=== PATIENT | male | born 1950 | race Caucasian/White ===

== ENCOUNTER 2017-07-05 19:08 | Emergency (ER) | payer MEDICARE, BC ==
[~2017-07-05] VITALS: Ht 180.3 cm; Wt 100.0 kg
[~2017-07-05 19:08] MED LIST: ASPIRIN81 MG PO; CARVEDILOL12.5 MG PO; CORDARONE/200 MG/TAB PO; COREG25 MG PO; COUMADIN2.5 MG PO; HUMALOG 751000 UNITS SC; LISINOPRIL20 MG PO; LOVENOX SC; SIMVASTATIN40 MG PO; ZYRTEC10 MG PO
[2017-07-05] MEDS ORDERED: CLOPIDOGREL75 MG PO (20:04)
[2017-07-05] MEDS ORDERED: JANTOVEN7.5 MG PO (20:05)
[2017-07-05] MEDS ORDERED: FUROSEMIDE40 MG PO (20:05)
[2017-07-05] MEDS ORDERED: ISOSORBIDE MONO30 MG PO (20:06)
[2017-07-05] MEDS ORDERED: ATORVASTATIN CA80 MG PO (20:06)
[2017-07-05] MEDS ORDERED: VICTOZA18 MG/3 ML SC (20:07)
[2017-07-05] MEDS ORDERED: TRESIBA FL100 UNIT/M SC (20:08)
[2017-07-06 00:29] VITALS: BP 151/71
== END 2017-07-06 00:28 | disposition home or self-care (01) ==
LOC: ED 19:08
DX: S81.811A Laceration without foreign body, right lower leg, initial encounter (principal); S80.812A Abrasion, left lower leg, initial encounter; S80.811A Abrasion, right lower leg, initial encounter; M47.812 Spondylosis without myelopathy or radiculopathy, cervical region; M79.9 Soft tissue disorder, unspecified; W01.0XXA Fall on same level from slipping, tripping and stumbling without subsequent striking against object, initial encounter; Y92.89 Other specified places as the place of occurrence of the external cause

== ENCOUNTER 2017-08-26 06:27 | Day surgery (SDC) | payer MEDICARE, BC ==
[~2017-08-26] VITALS: Ht 180.3 cm; Wt 97.1 kg
[~2017-08-26 06:27] MED LIST changes: +ATORVASTATIN CA80 MG PO; +CARVEDILOL25 MG PO; +CLOPIDOGREL75 MG PO; +FUROSEMIDE40 MG PO; +ISOSORBIDE MONO30 MG PO; +JANTOVEN7.5 MG PO; +TRESIBA FL100 UNIT/M SC; +VICTOZA18 MG/3 ML SC
[2017-08-26 08:25] VITALS: BP 149/70
== END 2017-08-26 08:58 | disposition home or self-care (01) ==
LOC: ENDO 06:27
PROVIDERS: ATTEND Surgery
PROC: 0DBL8ZX Excision of Transverse Colon, Via Natural or Artificial Opening Endoscopic, Diagnostic (ICD-10-PCS; principal; 2017-08-26)
DX: Z12.11 Encounter for screening for malignant neoplasm of colon (principal); D12.3 Benign neoplasm of transverse colon; I48.91 Unspecified atrial fibrillation; I25.10 Atherosclerotic heart disease of native coronary artery without angina pectoris; E78.5 Hyperlipidemia, unspecified; E11.9 Type 2 diabetes mellitus without complications; Z95.1 Presence of aortocoronary bypass graft; Z79.01 Long term (current) use of anticoagulants

== ENCOUNTER 2018-02-02 14:44 | Observation (INO) | payer MEDICARE, BC ==
[~2018-02-02] VITALS: Ht 180.3 cm; Wt 99.5 kg
[2018-02-02 15:16] LABS: HEMATOCRIT 36.4 % (39.0-50.0); HEMOGLOBIN 12.2 g/dl (14.0-18.0); IMMATURE GRANULOCYTES 0.4 % (0.0-5.0); MEAN CELL VOLUME 88.1 fL CALC (80.0-100.0); MEAN CORPUSCULAR HGB 29.5 pG CALC (26.0-32.0); MEAN CORPUSCULAR HGB CONC 33.5 g/L CALC (32.0-36.0); NEUT# 6.48 thou/uL (1.82-7.42); RED BLOOD COUNT 4.13 mill/uL (4.70-6.10); RED CELL DISTRI WIDTH 14.5 % (11.5-15.5)
[2018-02-02 15:33] LABS: ALBUMIN 3.8 g/dL (3.2-5.0); ALKALINE PHOSPHATASE 93 u/l (38-126); ANION GAP 14 (6-22 (CALC)); BILIRUBIN, TOTAL 1.8 mg/dL (0.0-1.4); BUN 28 mg/dL (8-23); BUN/CREATININE RATIO 19 (12-20 (CALC)); CARBON DIOXIDE 23 mmol/l (22-30); CHLORIDE 110 mmol/l (95-108); CREATININE 1.5 mg/dL (0.7-1.3); GFR 47 ML/MIN (>=60 (CALC)); GFR FOR AFR.AMER. 56 ML/MIN (>=60 (CALC)); POTASSIUM 4.6 mmol/l (3.5-5.1); SGOT/AST 21 u/l (19-48); SODIUM 141 mmol/l (137-146); TOTAL PROTEIN 6.6 g/dL (6.3-8.2)
[2018-02-02 17:29] VITALS: BP 118/53
[2018-02-02 19:38] VITALS: BP 140/70
[2018-02-03 00:09] VITALS: BP 143/63
[2018-02-03 04:32] VITALS: BP 151/66
[2018-02-03 05:18] LABS: HEMATOCRIT 35.2 % (39.0-50.0); HEMOGLOBIN 11.5 g/dl (14.0-18.0); IMMATURE GRANULOCYTES 0.5 % (0.0-5.0); MEAN CELL VOLUME 89.8 fL CALC (80.0-100.0); MEAN CORPUSCULAR HGB 29.3 pG CALC (26.0-32.0); MEAN CORPUSCULAR HGB CONC 32.7 g/L CALC (32.0-36.0); NEUT# 7.09 thou/uL (1.82-7.42); RED BLOOD COUNT 3.92 mill/uL (4.70-6.10); RED CELL DISTRI WIDTH 14.6 % (11.5-15.5)
[2018-02-03 05:28] LABS: INTERNATIONAL NORMALIZED RATIO 1.5 RATIO (0.7-1.3); PROTHROMBIN TIME 15.9 SECONDS (9.0-12.5)
[2018-02-03 05:32] LABS: ALBUMIN 3.3 g/dL (3.2-5.0); ALKALINE PHOSPHATASE 86 u/l (38-126); ANION GAP 13 (6-22 (CALC)); BILIRUBIN, TOTAL 1.8 mg/dL (0.0-1.4); BUN 24 mg/dL (8-23); BUN/CREATININE RATIO 22 (12-20 (CALC)); CARBON DIOXIDE 22 mmol/l (22-30); CHLORIDE 110 mmol/l (95-108); CREATININE 1.1 mg/dL (0.7-1.3); GFR > 60 ML/MIN (>=60 (CALC)); GFR FOR AFR.AMER. > 60 ML/MIN (>=60 (CALC)); MAGNESIUM 1.9 mg/dL (1.6-2.3); POTASSIUM 3.7 mmol/l (3.5-5.1); SGOT/AST 18 u/l (19-48); SODIUM 142 mmol/l (137-146); TOTAL PROTEIN 5.9 g/dL (6.3-8.2)
[2018-02-03 05:57] LABS: URINE BILIRUBIN - DIPSTICK NEGATIVE (NEGATIVE); URINE BLOOD DIPSTICK NEGATIVE (NEGATIVE); URINE COLOR YELLOW; URINE GLUCOSE - DIPSTICK NEGATIVE (NEGATIVE); URINE KETONE NEGATIVE (NEGATIVE); URINE LEUK ESTERASE NEGATIVE (Negative); URINE NITRITE - DIPSTICK NEGATIVE (Negative); URINE PH 5.5 (4.5-8.0); URINE PROTEIN - DIPSTICK NEGATIVE (NEG-TRACE); URINE SPECIFIC GRAVITY 1.025; URINE UROBILINOGEN - DIPSTICK 0.2 E.U./dL (0.2)
[2018-02-03 06:00] LABS: URINE CLARITY CLEAR
[2018-02-03 11:57] VITALS: BP 128/66
== END 2018-02-03 13:38 | disposition home or self-care (01) ==
LOC: ED 14:44 → ED-I 15:50 → ED 16:14 → MS2 16:15
PROVIDERS: Emergency Medicine; ADMIT Internal Medicine Nephrology; ATTEND Internal Medicine Nephrology
DX: R07.89 Other chest pain (principal); I11.0 Hypertensive heart disease with heart failure; I25.119 Atherosclerotic heart disease of native coronary artery with unspecified angina pectoris; I50.22 Chronic systolic (congestive) heart failure; E78.5 Hyperlipidemia, unspecified; E66.9 Obesity, unspecified; E11.51 Type 2 diabetes mellitus with diabetic peripheral angiopathy without gangrene; I25.2 Old myocardial infarction; Z68.30 Body mass index [BMI] 30.0-30.9, adult; Z95.1 Presence of aortocoronary bypass graft; Z95.5 Presence of coronary angioplasty implant and graft; Z87.891 Personal history of nicotine dependence; Z79.4 Long term (current) use of insulin

== ENCOUNTER 2018-05-27 16:20 | Emergency (ER) | payer MEDICARE, BC ==
[~2018-05-27] VITALS: Ht 180.3 cm; Wt 105.0 kg
[2018-05-27 16:41] LABS: GFR 51 ML/MIN (>=60 (CALC)); GFR FOR AFR.AMER. > 60 ML/MIN (>=60 (CALC))
[2018-05-27 16:43] LABS: HEMOGLOBIN 12.4 g/dl (14.0-18.0); IMMATURE GRANULOCYTES 0.5 % (0.0-5.0); MEAN CELL VOLUME 91.1 fL CALC (80.0-100.0); MEAN CORPUSCULAR HGB 29.7 pG CALC (26.0-32.0); MEAN CORPUSCULAR HGB CONC 32.6 g/L CALC (32.0-36.0); NEUT# 6.36 thou/uL (1.82-7.42); RED BLOOD COUNT 4.17 mill/uL (4.70-6.10); RED CELL DISTRI WIDTH 13.7 % (11.5-15.5)
[2018-05-27 17:02] LABS: ALBUMIN 4.3 g/dL (3.2-5.0); ALKALINE PHOSPHATASE 110 u/l (38-126); ANION GAP 16 (6-22 (CALC)); BUN 18 mg/dL (8-23); BUN/CREATININE RATIO 14 (12-20 (CALC)); CARBON DIOXIDE 25 mmol/l (22-30); CHLORIDE 104 mmol/l (95-108); CREATININE 1.3 mg/dL (0.7-1.3); GFR 55 ML/MIN (>=60 (CALC)); GFR FOR AFR.AMER. > 60 ML/MIN (>=60 (CALC)); POTASSIUM 3.9 mmol/l (3.5-5.1); SGOT/AST 18 u/l (19-48); SODIUM 140 mmol/l (137-146); TOTAL PROTEIN 7.1 g/dL (6.3-8.2)
[2018-05-27 17:03] LABS: INTERNATIONAL NORMALIZED RATIO 1.2 RATIO (0.7-1.3)
[2018-05-27] MEDS ORDERED: METFORMIN500 MG PO (17:56)
[2018-05-27 20:18] LABS: BARBITURATES NEGATIVE (NEGATIVE); COCAINE NEGATIVE (NEGATIVE); METHADONE NEGATIVE (NEGATIVE); OXCYCODONE NEGATIVE (NEGATIVE); TETRAHYDROCANNABIONOL NEGATIVE (NEGATIVE); TRICYLIC ANTIDEPRESSANTS NEGATIVE (NEGATIVE)
[2018-05-27 21:40] VITALS: BP 149/72
== END 2018-05-27 21:40 ==
LOC: ED 16:20
PROVIDERS: Emergency Medicine
DX: I63.9 Cerebral infarction, unspecified (principal); R47.01 Aphasia; R29.810 Facial weakness; H53.451 Other localized visual field defect, right eye; R29.703 NIHSS score 3; R10.9 Unspecified abdominal pain; I10 Essential (primary) hypertension; I25.2 Old myocardial infarction; E11.51 Type 2 diabetes mellitus with diabetic peripheral angiopathy without gangrene; Z95.1 Presence of aortocoronary bypass graft; Z95.5 Presence of coronary angioplasty implant and graft; Z95.0 Presence of cardiac pacemaker
CPT/HCPCS: J1650

== ENCOUNTER 2018-08-28 13:36 | Emergency (ER) | payer MEDICARE, BC ==
[~2018-08-28] VITALS: Ht 180.3 cm; Wt 102.0 kg
[~2018-08-28 13:36] MED LIST changes: +METFORMIN500 MG PO
[2018-08-28 14:45] LABS: HEMATOCRIT 36.4 % (39.0-50.0); HEMOGLOBIN 11.6 g/dl (14.0-18.0); IMMATURE GRANULOCYTES 0.5 % (0.0-5.0); MEAN CELL VOLUME 91.7 fL CALC (80.0-100.0); MEAN CORPUSCULAR HGB 29.2 pG CALC (26.0-32.0); MEAN CORPUSCULAR HGB CONC 31.9 g/L CALC (32.0-36.0); NEUT# 5.13 thou/uL (1.82-7.42); RED BLOOD COUNT 3.97 mill/uL (4.70-6.10); RED CELL DISTRI WIDTH 13.8 % (11.5-15.5)
[2018-08-28 14:51] LABS: GFR > 60 ML/MIN (>=60 (CALC)); GFR FOR AFR.AMER. > 60 ML/MIN (>=60 (CALC))
[2018-08-28 15:20] LABS: INTERNATIONAL NORMALIZED RATIO 1.2 RATIO (0.7-1.3); PROTHROMBIN TIME 12.1 SECONDS (9.0-12.5)
[2018-08-28 15:24] LABS: ALBUMIN 4.1 g/dL (3.2-5.0); ALKALINE PHOSPHATASE 85 u/l (38-126); ANION GAP 15 (6-22 (CALC)); BILIRUBIN, TOTAL 1.9 mg/dL (0.0-1.4); BUN 24 mg/dL (8-23); BUN/CREATININE RATIO 23 (12-20 (CALC)); CARBON DIOXIDE 21 mmol/l (22-30); CHLORIDE 111 mmol/l (95-108); GFR > 60 ML/MIN (>=60 (CALC)); GFR FOR AFR.AMER. > 60 ML/MIN (>=60 (CALC)); LIPASE 37 u/l (23-300); POTASSIUM 4.3 mmol/l (3.5-5.1); SGOT/AST 20 u/l (19-48); SODIUM 143 mmol/l (137-146)
[2018-08-28] MEDS ORDERED: CEPHALEXIN500 M1 PO (16:33)
[2018-08-28] MEDS ORDERED: TRAMADOL HYDROC50 MG PO (16:33)
[2018-08-28] MEDS ORDERED: MUPIROCIN2 % EX (16:33)
[2018-08-28 16:40] VITALS: BP 147/73
== END 2018-08-28 16:40 | disposition home or self-care (01) ==
LOC: ED 13:36
PROVIDERS: Family Medicine
DX: S80.211A Abrasion, right knee, initial encounter (principal); S50.311A Abrasion of right elbow, initial encounter; S20.211A Contusion of right front wall of thorax, initial encounter; I10 Essential (primary) hypertension; E11.51 Type 2 diabetes mellitus with diabetic peripheral angiopathy without gangrene; I25.2 Old myocardial infarction; W10.9XXA Fall (on) (from) unspecified stairs and steps, initial encounter
CPT/HCPCS: Q9967

== ENCOUNTER 2019-09-27 01:21 | Observation (INO) | payer MEDICARE, BC ==
[~2019-09-27] VITALS: Ht 180.3 cm; Wt 104.5 kg
[~2019-09-27 01:21] MED LIST changes: +CEPHALEXIN500 M1 PO; +FUROSEMIDE20 MG PO; -FUROSEMIDE40 MG PO; +MUPIROCIN2 % EX; +TRAMADOL HYDROC50 MG PO
--- NOTE | 2019-09-27 01:28 | NUR ---
PATIENT INSISTED ON WALKING TO ROOM 12. UNDRESSED INTO A GOWN, PLACED ON MONITOR. TRIAGE COMPLETED AT BEDSIDE.
--- NOTE | 2019-09-27 02:11 | NUR ---
PT STATES HIS CHEST PAIN STARTED YESTERDAY AROUND NOON (HE ALSO STATES HE HAD BEEN WORKING OUT IN THE YARD AND WORKING WITH HIS DOG WELL) BUT THE PAIN JAMES CAME AND WENT, SO LATER LAST NIGHT HE TOOK NTG X2 QWITH MILD RELIEF BUT THEN IT CAME BACK SO HE DECIEDED TO COME IN. PT HAS CARDIAC HX OF CABG, PACER, DM MRSA AND MISSING MULTIPLE TOES ON BILATERAL FEET RELATED TO CORRECTIVE FOOT SURGERY GONE BAD PER PT AND SPOUSE, PT ALSO HAS EDEMA TO BLE WITH SOME OPEN AREAS AND WEEPING SEROUS FLUID MODERATE AMOUNTS, PT STAETS THAT IS NOT NEW.
[2019-09-27 02:12] LABS: HEMATOCRIT 35.9 % (39.0-50.0); HEMOGLOBIN 11.9 g/dl (14.0-18.0); IMMATURE GRANULOCYTES 0.6 % (0.0-5.0); MEAN CELL VOLUME 88.9 fL CALC (80.0-100.0); MEAN CORPUSCULAR HGB 29.5 pG CALC (26.0-32.0); MEAN CORPUSCULAR HGB CONC 33.1 g/dL CAL (32.0-36.0); NEUT# 5.74 thou/uL (1.82-7.42); RED BLOOD COUNT 4.04 mill/uL (4.70-6.10); RED CELL DISTRI WIDTH 14.6 % (11.5-15.5)
[2019-09-27 02:33] LABS: ALBUMIN 3.5 g/dL (3.2-5.0); ALKALINE PHOSPHATASE 81 u/l (38-126); ANION GAP 11 (6-22 (CALC)); BILIRUBIN, TOTAL 1.2 mg/dL (0.0-1.4); BUN 22 mg/dL (8-23); BUN/CREATININE RATIO 21 (12-20 (CALC)); CARBON DIOXIDE 25 mmol/l (22-30); CHLORIDE 105 mmol/l (95-108); CREATININE 1.1 mg/dL (0.7-1.3); GFR > 60 ML/MIN (>=60 (CALC)); GFR FOR AFR.AMER. > 60 ML/MIN (>=60 (CALC)); POTASSIUM 3.5 mmol/l (3.5-5.1); SGOT/AST 21 u/l (19-48); SODIUM 137 mmol/l (137-146); TOTAL PROTEIN 6.2 g/dL (6.3-8.2)
[2019-09-27 02:45] LABS: MYOGLOBIN 57 ng/mL (0 - 121)
--- NOTE | 2019-09-27 03:20 | NUR ---
AWARE OF PLANNED ADMISSION AND PROLONGED STAY IN ER UNTIL BED AVAILABLE, AT BEDSIDE BOTH VERBALIZE UNDERSTANDING.
--- NOTE | 2019-09-27 03:53 | NUR ---
ADMISSION ASSESMENT COMPLETED, SEE INTERVENTIONS PT STATES HIS CP STARTED YESTERDAY AFTER WORKING IN THE YARD AND WITH THE DOG, SUBSUDED THEN RETURNED AND BECAUSE OF HIS CARDIAC HISTORY HE DECIDED TO COME IN FOR EVAL. LUNGS CLEAR WITH NO SOB, PT HAS BLE WITH OPEN AREAS AND WEEPING SEROUS DRNG, PT HAS HISTORY OF PVD AND STATES THIS IS NOT NEW. AWARE OF PROLONGED STAY IN ER UNTIL BED AVAIALABLE, VERBALIZES UNDERSTANDING, AT BEDSIDE, COMFORT MEASURES PROVIDED, SNACK PROVIDED, CALL QUIROGA WITHIN REACH
[2019-09-27 06:45] VITALS: BP 164/79
[2019-09-27 07:17] VITALS: BP 173/83
[2019-09-27 07:37] LABS: CHOLESTEROL HDL RATIO 3.9 (<4.4 (CALC))
[2019-09-27 09:26] VITALS: BP 182/76
--- NOTE | 2019-09-27 09:30 | NUR ---
WILL HOLD CARVEDILOL DUE TO HEART RATE AT 60. R ERINA NOTIFIED.
--- NOTE | 2019-09-27 10:53 | NUR ---
RECEIVED REPORT FROM ALEC ANDREWS WILL BRING UP PT SOON.
--- NOTE | 2019-09-27 11:30 | NUR ---
Admission Note Report Given to: BREANNE RODRIGUEZ Transported by: X Wheelchair Stretcher Transported with: X Nurse Transporter X Patent IV O2 X Filer Finish Location: ICU X MS2 PATIENT TO ROOM 278 WITH TELE BOX IN [address]ACE.
--- NOTE | 2019-09-27 11:41 | NUR ---
PT ARRIVED VIA WC WITH STAFF. IV SITE IS FREE FROM REDNESS OR EDEMA. AMBULATED TO THE BED WITH NO DISTRESS NOTED. CONTINUE TO OSBERVE AND MONITOR.
[2019-09-27 11:43] LABS: URINE BILIRUBIN - DIPSTICK NEGATIVE (NEGATIVE); URINE BLOOD DIPSTICK NEGATIVE (NEGATIVE); URINE COLOR YELLOW; URINE GLUCOSE - DIPSTICK NEGATIVE (NEGATIVE); URINE KETONE NEGATIVE (NEGATIVE); URINE LEUK ESTERASE NEGATIVE (NEGATIVE); URINE NITRITE - DIPSTICK NEGATIVE (Negative); URINE PROTEIN - DIPSTICK 100 mg/dL (NEG-TRACE); URINE SPECIFIC GRAVITY 1.015
[2019-09-27 11:58] LABS: URINE RBC 0-2 RBC/hpf (0-5); URINE SQUAMOUS EPITHELIAL CELL FEW EPI/hpf (0-FEW)
[2019-09-27 12:09] LABS: INTERNATIONAL NORMALIZED RATIO 1.2 RATIO (0.7-1.3)
--- NOTE | 2019-09-27 12:15 | NUR ---
PT IS RELAXING IN BED WITH NO DISTRESS NOTED.
[2019-09-27 15:00] VITALS: BP 166/75
--- NOTE | 2019-09-27 16:30 | NUR ---
PT IS IN BED CALLING HIS RE: DISCHARGE
--- NOTE | 2019-09-27 16:32 | NUR ---
DISCHARGE INSTRUCTIONS GIVEN AND VERBALIZED UNDERSTANDING. IV SITE DISCONTINUED CATHETER INTACT. NO REDNESS OR EDEMA./ TELE MONITOR TAKEN OFF. CONTINUE TO OSBERVE AND MONITOR.
--- NOTE | 2019-09-27 17:29 | NUR ---
PT AMBUALTED OFF THE UNIT. IV SITE DISCONTINUED. CATHETER INTACT. DISCHARGE INSTRUCTIONS FAMILY BROUGHT CLOTHES FOR PT TO CHANGE INTO. WANTS TO WALK TIRED OF LAYING. Discharge instructions given. Patient verbalizes understanding of same. Discharged in stable condition via Ambulatory to Home with family. All belongings sent with pt.
== END 2019-09-27 17:20 | disposition home or self-care (01) ==
LOC: ED 01:21 → ED-I 02:07 → ED 02:54 → ED-I 02:55 → MS2 09:00
PROVIDERS: Emergency Medicine; ADMIT Internal Medicine; ATTEND Internal Medicine
DX: I25.118 Atherosclerotic heart disease of native coronary artery with other forms of angina pectoris (principal); I11.0 Hypertensive heart disease with heart failure; I50.9 Heart failure, unspecified; E11.51 Type 2 diabetes mellitus with diabetic peripheral angiopathy without gangrene; I48.91 Unspecified atrial fibrillation; E78.5 Hyperlipidemia, unspecified; Z95.1 Presence of aortocoronary bypass graft; Z95.5 Presence of coronary angioplasty implant and graft; Z95.810 Presence of automatic (implantable) cardiac defibrillator; Z87.891 Personal history of nicotine dependence; Z79.01 Long term (current) use of anticoagulants; Z79.4 Long term (current) use of insulin; Z79.82 Long term (current) use of aspirin; Z79.02 Long term (current) use of antithrombotics/antiplatelets; Z20.828 Contact with and (suspected) exposure to other viral communicable diseases
CPT/HCPCS: G0378

== ENCOUNTER 2020-07-11 18:23 | Observation (INO) | payer MEDICARE, BC ==
[~2020-07-11] VITALS: Ht 180.3 cm; Wt 114.0 kg
[~2020-07-11 18:23] MED LIST changes: +XARELTO10 MG PO
[2020-07-11] MEDS ORDERED: NITROSTAT0.3 MG SL (18:53)
[2020-07-11 19:24] LABS: HEMATOCRIT 35.5 % (39.0-50.0); HEMOGLOBIN 11.2 g/dl (14.0-18.0); IMMATURE GRANULOCYTES 0.4 % (0.0-5.0); MEAN CELL VOLUME 92.4 fL CALC (80.0-100.0); MEAN CORPUSCULAR HGB 29.2 pG CALC (26.0-32.0); MEAN CORPUSCULAR HGB CONC 31.5 g/dL CAL (32.0-36.0); NEUT# 5.66 thou/uL (1.82-7.42); RED BLOOD COUNT 3.84 mill/uL (4.70-6.10); RED CELL DISTRI WIDTH 14.5 % (11.5-15.5)
[2020-07-11 19:43] LABS: ALKALINE PHOSPHATASE 82 u/l (38-126); ANION GAP 11 (6-22 (CALC)); BILIRUBIN, TOTAL 1.1 mg/dL (0.0-1.4); BUN 15 mg/dL (8-23); BUN/CREATININE RATIO 13 (12-20 (CALC)); CARBON DIOXIDE 27 mmol/l (22-30); CHLORIDE 105 mmol/l (95-108); CREATININE 1.2 mg/dL (0.7-1.3); GFR 60 ML/MIN (>=60 (CALC)); GFR FOR AFR.AMER. > 60 ML/MIN (>=60 (CALC)); LIPASE 22 u/l (23-300); POTASSIUM 3.8 mmol/l (3.5-5.1); SGOT/AST 25 u/l (19-48); SODIUM 139 mmol/l (137-146)
[2020-07-11 19:44] LABS: ACT PARTIAL THROMBO TIME 25.2 SECONDS (20.0-32.5); ALBUMIN 4.1 g/dL (3.2-5.0); PROTHROMBIN TIME 11.2 SECONDS (9.0-12.5); TOTAL PROTEIN 7.2 g/dL (6.3-8.2)
[2020-07-11 19:45] LABS: INTERNATIONAL NORMALIZED RATIO 1.1 RATIO (0.7-1.3)
[2020-07-11 19:54] LABS: MYOGLOBIN 53 ng/mL (0 - 121)
[2020-07-11 21:55] VITALS: BP 159/89
[2020-07-12 04:00] VITALS: BP 148/60
[2020-07-12 05:44] LABS: HEMATOCRIT 34.2 % (39.0-50.0); HEMOGLOBIN 10.5 g/dl (14.0-18.0); IMMATURE GRANULOCYTES 0.5 % (0.0-5.0); MEAN CELL VOLUME 92.9 fL CALC (80.0-100.0); MEAN CORPUSCULAR HGB 28.5 pG CALC (26.0-32.0); MEAN CORPUSCULAR HGB CONC 30.7 g/dL CAL (32.0-36.0); NEUT# 5.83 thou/uL (1.82-7.42); RED BLOOD COUNT 3.68 mill/uL (4.70-6.10); RED CELL DISTRI WIDTH 14.3 % (11.5-15.5)
[2020-07-12 06:02] LABS: ALBUMIN 3.4 g/dL (3.2-5.0); ALKALINE PHOSPHATASE 78 u/l (38-126); ANION GAP 11 (6-22 (CALC)); BUN 15 mg/dL (8-23); BUN/CREATININE RATIO 17 (12-20 (CALC)); CARBON DIOXIDE 25 mmol/l (22-30); CHLORIDE 107 mmol/l (95-108); CREATININE 0.9 mg/dL (0.7-1.3); GFR > 60 ML/MIN (>=60 (CALC)); GFR FOR AFR.AMER. > 60 ML/MIN (>=60 (CALC)); POTASSIUM 3.6 mmol/l (3.5-5.1); SGOT/AST 23 u/l (19-48); SODIUM 138 mmol/l (137-146); TOTAL PROTEIN 6.2 g/dL (6.3-8.2)
[2020-07-12 07:54] VITALS: BP 154/67
[2020-07-12] MEDS ORDERED: VIAGRA50 MG PO (08:31)
[2020-07-12] MEDS ORDERED: HYDROCO/APAP1 TA9 PO (08:32)
[2020-07-12 09:15] LABS: CHOLESTEROL HDL RATIO 4.9 (<4.4 (CALC))
[2020-07-12 10:47] VITALS: BP 163/75
[2020-07-12 11:18] LABS: URINE BILIRUBIN - DIPSTICK NEGATIVE (NEGATIVE); URINE BLOOD DIPSTICK NEGATIVE (NEGATIVE); URINE COLOR YELLOW; URINE GLUCOSE - DIPSTICK NEGATIVE (NEGATIVE); URINE KETONE NEGATIVE (NEGATIVE); URINE LEUK ESTERASE NEGATIVE (NEGATIVE); URINE NITRITE - DIPSTICK NEGATIVE (Negative); URINE PROTEIN - DIPSTICK 100 mg/dL (NEG-TRACE); URINE SPECIFIC GRAVITY 1.025
[2020-07-12 11:36] LABS: URINE SQUAMOUS EPITHELIAL CELL RARE EPI/hpf (0-FEW)
[2020-09-26] MEDS ORDERED: MEDDOSEPAK PO (11:54)
[2020-09-26] MEDS ORDERED: PROVENTIL HFA IN (11:54)
[2020-12-04] MEDS ORDERED: ISOSORB MONO30 MG PO (11:39)
[2020-12-04] MEDS ORDERED: ADLT ASA LOW81 MG PO (11:39)
== END 2020-07-12 14:30 | disposition home or self-care (01) ==
LOC: ED 18:23 → ED-I 19:13 → ED 20:34 → MS2 20:35
PROVIDERS: Emergency Medicine; Nurse Practitioner; ADMIT Internal Medicine; ATTEND Internal Medicine
DX: R07.9 Chest pain, unspecified (principal); J18.9 Pneumonia, unspecified organism; I11.0 Hypertensive heart disease with heart failure; I50.9 Heart failure, unspecified; E11.9 Type 2 diabetes mellitus without complications; I25.119 Atherosclerotic heart disease of native coronary artery with unspecified angina pectoris; I48.20 Chronic atrial fibrillation, unspecified; E78.5 Hyperlipidemia, unspecified; R59.0 Localized enlarged lymph nodes; I73.9 Peripheral vascular disease, unspecified; I25.2 Old myocardial infarction; Z86.14 Personal history of Methicillin resistant Staphylococcus aureus infection; Z79.4 Long term (current) use of insulin; Z95.1 Presence of aortocoronary bypass graft; Z95.5 Presence of coronary angioplasty implant and graft; Z95.810 Presence of automatic (implantable) cardiac defibrillator; Z87.891 Personal history of nicotine dependence; Z20.822 Contact with and (suspected) exposure to COVID-19
CPT/HCPCS: G0378

== ENCOUNTER 2020-09-21 18:18 | Inpatient (IN) | payer MEDICARE, BC ==
[~2020-09-21] VITALS: Ht 180.3 cm; Wt 100.0 kg
[~2020-09-21 18:18] MED LIST changes: +HYDROCO/APAP1 TA9 PO; +NITROSTAT0.3 MG SL; +VIAGRA50 MG PO
--- NOTE | 2020-09-21 18:25 | NUR ---
PATEINT TO ROOM VIA WHELCHAIR AND PHYSICIAN NOTIFIED OF PATIENT STATUS
--- NOTE | 2020-09-21 19:07 | NUR ---
REPORT TO KEMI ANDREWS
[2020-09-21 19:11] LABS: HEMATOCRIT 37.6 % (39.0-50.0); HEMOGLOBIN 12.1 g/dl (14.0-18.0); IMMATURE GRANULOCYTES 0.5 % (0.0-5.0); MEAN CELL VOLUME 89.3 fL CALC (80.0-100.0); MEAN CORPUSCULAR HGB 28.7 pG CALC (26.0-32.0); MEAN CORPUSCULAR HGB CONC 32.2 g/dL CAL (32.0-36.0); NEUT# 27.78 thou/uL (1.82-7.42); RED BLOOD COUNT 4.21 mill/uL (4.70-6.10)
[2020-09-21 19:18] LABS: ALBUMIN 3.7 g/dL (3.2-5.0); ALKALINE PHOSPHATASE 92 u/l (38-126); ANION GAP 14 (6-22 (CALC)); BUN 14 mg/dL (8-23); BUN/CREATININE RATIO 14 (12-20 (CALC)); CARBON DIOXIDE 26 mmol/l (22-30); CHLORIDE 99 mmol/l (95-108); GFR > 60 ML/MIN (>=60 (CALC)); GFR FOR AFR.AMER. > 60 ML/MIN (>=60 (CALC)); POTASSIUM 3.9 mmol/l (3.5-5.1); SGOT/AST 28 u/l (19-48); SODIUM 136 mmol/l (137-146); TOTAL PROTEIN 6.9 g/dL (6.3-8.2)
[2020-09-21 19:26] LABS: BILIRUBIN, TOTAL 3.4 mg/dL (0.0-1.4)
[2020-09-21 19:30] LABS: MYOGLOBIN 114 ng/mL (0 - 121)
--- NOTE | 2020-09-21 20:08 | NUR ---
PT UNABLE TO VERIFY MEDICATIONS NOT CHANGED R/T MD ALREADY ORDERED MEDS, CONSULT PLACED FOR PHARMACY TO EVAL.
--- NOTE | 2020-09-21 20:19 | NUR ---
REPORT CALLED TO [facility].
--- NOTE | 2020-09-21 20:43 | NUR ---
PT REFUSED MONGE INSERTION, PT WILL ATTEMPT TO PROVIDE URINE SPECIMEN, CALL QUIROGA WITHIN REACH
--- NOTE | 2020-09-21 21:42 | NUR ---
PT TRANSPORTED TO ICU VIA STRETCHER, ALL BELONGINGS SENT WITH PATIENT.
[2020-09-21 21:45] VITALS: BP 138/65
--- NOTE | 2020-09-21 21:45 | NUR ---
PT ARRIVED TO FLOOR VIA STRETCHER ACCOMPAINED BY ER STAFF. ADMITTED TO ICU BED 6 FOR CHF, HYPOXIA, PNEUMONIA, AND LEUKOCYTOSIS. PT A&OX4. NO APPARENT RESPIRATORY DISTRESS NOTED. PT ON 2L/M VIA NC SAT 98%, NOT HOME DEPENDENT. PT AMBULATORY WITH CANE AND X1 ASSIST FROM STRETCHER TO BED. PT PLACED ON MONITORS AT THIS TIME. ACCUCHECK OBTAINED, 206. PT IN GOWN AND SHORTS FROM HOME, SHORTS SMELL STRONGLY OF URINE. PT REFUSED TO REMOVE SHORTS. PT DENIES ANY INCONTINENCE OF BOWEL OR BLADDER. NO URINE SAMPLE OBTAINED IN ED, PT HAS NOT VOIDED YET. REFUSED MONGE CATHETER FOR STRICT I'S&O'S. IV SITE APPEARS HEALTHY, FLUSHED WITHOUT DIFFICULTY. PT ORIENTED TO ROOM AND CALL LIGHT SYSTEM. SAFETY PRECAUTIONS REINFORCED. ICE WATER PROVIDED. NO CURRENT WANTS OR NEEDS VOICED. CALL LIGHT WITHIN REACH. WILL CONTINUE TO MONITOR.
[2020-09-21 22:00] VITALS: BP 133/62
--- NOTE | 2020-09-21 22:13 | NUR ---
PT MEDICATED ORDERED. PT REFUSED METFORMIN, STATES NO LONGER TAKES AT HOME. DIABETIC SNACK OFFERED PT ALSO REFUSED. NO APPARENT RESPIRATORY DISTRESS NOTED. NO CURRENT WANTS OR NEEDS VOICED. CALL LIGHT WITHIN REACH. WILL CONTINUE TO MONITOR.
[2020-09-21 22:15] VITALS: BP 111/53
--- NOTE | 2020-09-21 22:20 | NUR ---
WOUND CULTURE OBTAINED FROM LLE WOUND, BLOOD DRAINAGE NOTED. CLEANSED WITH NS, COVERED WITH DRY DRESSING. PT STATES STARTED BLISTER ABOUT TWO WEEKS AGO, HE [facility] TO HAVE IT LOOKED AT.
[2020-09-21 22:30] VITALS: BP 137/66
[2020-09-21 22:45] VITALS: BP 129/60
[2020-09-22] VITALS (11 sets, daily range): BP systolic 101–124; BP diastolic 54–67
--- NOTE | 2020-09-22 00:07 | NUR ---
PT RESTING IN BED WITH EYES CLOSED. NO APPARENT DISTRESS NOTED. RESPIRATIONS EVEN AND UNLABORED. MONITORS IN PLACE. O2 @ 2L/M VIA NC. VSS. CALL LIGHT WITHIN REACH. WILL CONTINUE TO MONITOR.
--- NOTE | 2020-09-22 01:19 | NUR ---
WARM BLANKET PROVIDED UPON REQUEST. AFEBRILE AT THIS TIME. PT HAS NOT VOIDED YET. PT STATES " I DON'T HAVE TO GO" ENCOURAGED PT TO TRY. DISCUSSED MONGE CATHETER AND BLADDER SCANNING. PT VERBALIZED UNDERSTANDING BUT CONTINUE TO REFUSE AT THIS TIME. WILL CONTINUE TO MONITOR.
--- NOTE | 2020-09-22 03:14 | NUR ---
BLADDER SCANNED AT THIS TIME. 158ML NOTED AT THIS TIME. NO BLADDER DISTENTION NOTED. WATER PROVIDED UPON REQUEST. VSS. CALL LIGHT WITHIN REACH. WILL CONTINUE TO MONITOR.
--- NOTE | 2020-09-22 04:55 | NUR ---
PT C/O PELVIS DISCOMFORT AND FEELING THE URGE TO URINATE BUT NOT ABLE TO. BLADDER SCANNED AT THIS TIME, GREATER THAN 300ML NOTED. DISCUSSED FINDINGS WITH PT AND NEED FOR MONGE PLACEMENT. PT VERBALIZED UNDERSTANDING AND AGREED TO MONGE PLACEMENT AT THIS TIME. 16F INSERTED USING STERILE TECHNIQUE, SECURED TO RIGHT THIGH, COLLECTION BAG ATTACHED TO BED. 350ML MICHAEL COLORED URINE NOTED DRAINING TO GRAVITY. URINE SAMPLE SENT TO LAB AT THIS TIME. PT TOLERATED WELL. PT REPOSITIONED IN BED. NO APPARENT DISTRESS NOTED. RESPIRATIONS EVEN AND UNLABORED. VSS. 02 SAT 98% ON 2L/M VIA NC. NO CURRENT WANTS OR NEEDS NOTED. CALL LIGHT WITHIN REACH. WILL CONTINUE TO MONITOR.
[2020-09-22 05:05] LABS: HEMOGLOBIN 10.8 g/dl (14.0-18.0); IMMATURE GRANULOCYTES 0.3 % (0.0-5.0); MEAN CELL VOLUME 91.1 fL CALC (80.0-100.0); MEAN CORPUSCULAR HGB 28.1 pG CALC (26.0-32.0); MEAN CORPUSCULAR HGB CONC 30.9 g/dL CAL (32.0-36.0); NEUT# 17.34 thou/uL (1.82-7.42); RED BLOOD COUNT 3.84 mill/uL (4.70-6.10); RED CELL DISTRI WIDTH 14.3 % (11.5-15.5)
[2020-09-22 05:25] LABS: ALKALINE PHOSPHATASE 69 u/l (38-126); ANION GAP 11 (6-22 (CALC)); BILIRUBIN, TOTAL 2.6 mg/dL (0.0-1.4); BUN 18 mg/dL (8-23); BUN/CREATININE RATIO 19 (12-20 (CALC)); CARBON DIOXIDE 26 mmol/l (22-30); CHLORIDE 102 mmol/l (95-108); CREATININE 0.9 mg/dL (0.7-1.3); GFR > 60 ML/MIN (>=60 (CALC)); GFR FOR AFR.AMER. > 60 ML/MIN (>=60 (CALC)); POTASSIUM 3.6 mmol/l (3.5-5.1); SGOT/AST 21 u/l (19-48); SODIUM 135 mmol/l (137-146); TOTAL PROTEIN 5.7 g/dL (6.3-8.2)
[2020-09-22 05:31] LABS: URINE BLOOD DIPSTICK MODERATE (NEGATIVE); URINE COLOR YELLOW; URINE GLUCOSE - DIPSTICK 100 mg/dL (NEGATIVE); URINE KETONE NEGATIVE (NEGATIVE); URINE PROTEIN - DIPSTICK >=300 mg/dL (NEG-TRACE); URINE SPECIFIC GRAVITY >=1.030; URINE UROBILINOGEN - DIPSTICK 0.2 E.U./dL (0.2)
[2020-09-22 05:34] LABS: URINE BILIRUBIN - DIPSTICK SMALL (NEGATIVE); URINE NITRITE - DIPSTICK NEGATIVE (Negative)
[2020-09-22 05:35] LABS: URINE LEUK ESTERASE NEGATIVE (NEGATIVE)
[2020-09-22 05:40] LABS: URINE BACTERIA MODERATE hpf; URINE EPITHELIAL CELLS FEW EPI/hpf (0-FEW)
[2020-09-22 05:55] LABS: ALBUMIN 2.8 g/dL (3.2-5.0)
--- NOTE | 2020-09-22 06:35 | NUR ---
PT RESTING IN BED WITH EYES CLOSED. NO APPARENT DISTRESS NOTED. RESPIRATIONS EVEN AND UNLABORED. MONITORS IN PLACE. O2 @ 2L/M VIA NC. CloudTranDread. MONGE PATENT DRAINING TO GRAVITY. CALL LIGHT WITHIN REACH. WILL CONTINUE TO MONITOR.
--- NOTE | 2020-09-22 06:45 | NUR ---
pt on 2lpm nc, resting comfortable c nad. vss. pt spo2 97. clerk telegraph service to monitor.
--- NOTE | 2020-09-22 07:10 | NUR ---
RECIEVED REPORT FROM NIGHT NURSE.
--- NOTE | 2020-09-22 07:30 | NUR ---
PATIENT ASSESSED. A/O X3. TURNED DOWN O2 NC TO 1L. O2 SATS 97%. PERRAL. NO PAIN REPORTED. NO SOB OR CHEST PAIN. DIM/CLEAR LUNG SOUNDS. HEART SOUNDS NORMAL WITH PACER. HYPOACTIVE BOWEL SOUNDS. NO EDEMA NOTED. MARICEL STOCKINGS ON. SMALL WOUND ON LEFT LOWER LEG. BANDADE WAS PLACED BY PREVIOUS NURSE. WEAK PEDAL PULSES. MISSING TOES ON BILAT FEET. ACCUCHECK 80, GAVE HIM ORANGE JUICE, STATED HE WILL THROW UP IF HE EATS ANY FOOD. GAVE HIM JELLO-O, APPLE SAUCE, AND PUDDING ON BEDSIDE TABLE IN CAUSE HE'D LIKE TO EAT SOMETHING SOFTER. FRESH ICE WATER IS AT BEDSIDE WELL. REFUSED BREAKFAST, EVEN THE OATMEAL. BEDSIDE COMMODE PLACED IN ROOM. SAFETY MEASURES IN PLACED. CALL LIGHT IN REACH. WILL CONTINUE TO MONITOR. VITAL SIGNS ARE STABLE.
--- NOTE | 2020-09-22 07:50 | NUR ---
RECIEVED REPORT FROM NIGHT NURSE.
--- NOTE | 2020-09-22 10:00 | NUR ---
PATIENT IS RESTING IN BED, STATED THAT AFTER HE SPOKE TO THE DOCTOR HE IS MUCH HAPPIER. HE IS OK WITH TRANSFERRING TO [facility] LATER TODAY. HE ALSO SMILED FOR THE FIRST TIME SINCE I GOT ON SHIFT. SAFETY MEASURES IN PLACE. CALL LIGHT IN REACH. WILL CONTINUE TO MONITOR.
--- NOTE | 2020-09-22 12:00 | NUR ---
PATIENT IS SITTING IN BED EATING LUNCH
--- NOTE | 2020-09-22 12:45 | NUR ---
PATIENT'S BLOOD SUGAR WAS 51 DROPPED DOWN TO 48 AFTER EATING ENTIRE LUNCH. CALLED DR. HEARN, STATED TO MONITOR IT AND INFORM HIM ON THE AFTERNOON BLOOD SUGAR. HE HASN'T BEEN EATING FOR PAST COUPLE DAYS AND HE REFUSED BREAKFAST THIS MORNING. WAS GIVEN 80UNITS OF LEVEMIR LAST NIGHT AROUND 2200.
--- NOTE | 2020-09-22 14:28 | NUR ---
PATIENT IS SITTING ON BSC. STATE THE STOOL SOFTNER IS MAKING HIM HAVE DIARRHEA 2OMINS AFTER RECEIVING THE PO MEDICATION.
--- NOTE | 2020-09-22 17:07 | NUR ---
PATIENT BLOOD SUGAR 71, CALLED DR. HEARN FOR THE UPDATE. DR STATED HE IS ABLE TO TRANSFER TO [facility] AND HOLD [facility] LEV[facility].
--- NOTE | 2020-09-22 17:10 | NUR ---
CALLED FOR A ROOM IN [facility]
--- NOTE | 2020-09-22 17:25 | NUR ---
GAVE OFF REPORT TO KEL ON [facility].
--- NOTE | 2020-09-22 17:51 | NUR ---
PATIENT TRANSFERRED TO [facility] VIA W/C TO ROOM 279. VITALS WERE STABLE. NO COMPLAINTS OF SOB.
--- NOTE | 2020-09-22 18:02 | NUR ---
PT ARRIVED TO [facility] ROOM 279 VIA WHEELCHAIR. PT REMAINS A/O X3. RESPIRATIONS ARE EVEN AND UNLABORED ON ROOM AIR. #20 LAC FLUSHED, SITE APPEARS HEALTHY AND PATENT. MONGE CATHATER IN PLACE, TUBING PATENT. PT DENIES OF ANY PAINS OR DISCOMFORTS AT THIS TIME. ALL SAFETY PRECAUTIONS ARE IN PLACE WITH CALL LIGHT IN REACH. WILL CONTINUE TO MONITOR.
--- NOTE | 2020-09-22 19:55 | NUR ---
PHYSICAL ASSESMENT COMPLETE. PT CURRENTLY DENIES PAIN OR DISCOMFORT. SCHEDULED MEDICATIONS AND PRN MEDICATION ADMINISTERED, SEE E-MAR. PT DENIES ANY NEEDS AT THIS TIME. PLAN OF CARE REVIEWED, PT DENIES QUESTIONS, VERBALIZES UNDERSTANDING. ITEMS WITHIN REACH, BED LOCKED IN LOW POSITION W/ BEDRAILS UP X2. CALL QUIROGA WITHIN REACH, AGREES TO CALL PRN.
--- NOTE | 2020-09-22 21:00 | NUR ---
PTS COREG HELD FOR LOW BP .. SYSTOLIC 105. WILL CONTINUE TO MONITOR.
--- NOTE | 2020-09-22 22:00 | NUR ---
LEAK IN 250 ML BAG PRIOR TO DISPENSING ZITHROMAX, OBTAINED NEW BAG AND ADMINISTERED AT 2330.
--- NOTE | 2020-09-23 | NUR ---
PT LAYING IN BED WITH EYES CLOSED, APPEARS TO BE SLEEPING, APPEARS COMFORTABLE AND IN NO DISTRESS. RESPIRATIONS REGULAR AND UNLABORED. ITEMS REMAIN WITHIN REACH, CALL QUIROGA REMAINS WITHIN REACH. BED REMAINS LOCKED AND IN LOW POSITION WITH BEDRAILS UP X2. WILL CONTINUE TO MONITOR.
[2020-09-23 04:00] VITALS: BP 103/56
--- NOTE | 2020-09-23 04:38 | NUR ---
PT RESTING IN BED, NO SIGNS OF DISTRESS NOTED, RESP EVEN AND UNLABORED. PT VOICES NO NEEDS OR COMPLAINTS AT THIS TIME. CALL LIGHT IN REACH, CONTINUE TO MONITOR.
[2020-09-23 05:45] LABS: HEMOGLOBIN 9.5 g/dl (14.0-18.0); IMMATURE GRANULOCYTES 0.4 % (0.0-5.0); MEAN CELL VOLUME 90.4 fL CALC (80.0-100.0); MEAN CORPUSCULAR HGB 28.6 pG CALC (26.0-32.0); MEAN CORPUSCULAR HGB CONC 31.7 g/dL CAL (32.0-36.0); NEUT# 11.73 thou/uL (1.82-7.42); RED BLOOD COUNT 3.32 mill/uL (4.70-6.10); RED CELL DISTRI WIDTH 14.3 % (11.5-15.5)
[2020-09-23 05:55] LABS: ALBUMIN 2.4 g/dL (3.2-5.0); ALKALINE PHOSPHATASE 61 u/l (38-126); ANION GAP 9 (6-22 (CALC)); BUN 25 mg/dL (8-23); BUN/CREATININE RATIO 20 (12-20 (CALC)); CARBON DIOXIDE 24 mmol/l (22-30); CHLORIDE 98 mmol/l (95-108); CREATININE 1.2 mg/dL (0.7-1.3); GFR 60 ML/MIN (>=60 (CALC)); GFR FOR AFR.AMER. > 60 ML/MIN (>=60 (CALC)); SGOT/AST 21 u/l (19-48); SODIUM 129 mmol/l (137-146)
--- NOTE | 2020-09-23 08:00 | NUR ---
SHIFT CHANGE REPORT, PT AWAKE ALERT AND ORIENTED RESTING IN BED, NO C/O DISCOMFORT AT THI TIME, TELE MONITOR IN PLACE, MONGE CATHETER IN PLACE WITH CLEAR YELLOW URINE, CALL QUIROGA IN REACH AND BED LOCKED IN LOWEST POSITION.
[2020-09-23 08:36] VITALS: BP 122/58
[2020-09-23 11:15] VITALS: BP 120/54
--- NOTE | 2020-09-23 15:38 | NUR ---
SITTING UP IN RECLIER, DRESSING TO LEFT LOWER LEG CHANGED AFTER WOUND CLEANED WITH H2O, LEG ELEVATED ON PILLOW, CALL QUIROGA IN REACH.
[2020-09-23 16:39] VITALS: BP 126/67
[2020-09-23 19:28] VITALS: BP 129/72
[2020-09-24] VITALS (7 sets, daily range): BP systolic 123–147; BP diastolic 57–79
--- NOTE | 2020-09-24 01:13 | NUR ---
PT C/O OF PAIN IN HIS ABD. AND SOB. ADMINISTERED PNR PAIN MEDICATION AND PLACE PT ON 2 LITERS OF O2. SATING AT 95% ON 2 LITERS.
[2020-09-24 06:04] LABS: HEMATOCRIT 29.8 % (39.0-50.0); HEMOGLOBIN 9.5 g/dl (14.0-18.0); IMMATURE GRANULOCYTES 0.4 % (0.0-5.0); MEAN CELL VOLUME 91.1 fL CALC (80.0-100.0); MEAN CORPUSCULAR HGB 29.1 pG CALC (26.0-32.0); MEAN CORPUSCULAR HGB CONC 31.9 g/dL CAL (32.0-36.0); NEUT# 7.81 thou/uL (1.82-7.42); RED BLOOD COUNT 3.27 mill/uL (4.70-6.10); RED CELL DISTRI WIDTH 14.3 % (11.5-15.5)
[2020-09-24 06:37] LABS: ALBUMIN 2.5 g/dL (3.2-5.0); ALKALINE PHOSPHATASE 63 u/l (38-126); ANION GAP 9 (6-22 (CALC)); BILIRUBIN, TOTAL 1.2 mg/dL (0.0-1.4); BUN 25 mg/dL (8-23); BUN/CREATININE RATIO 26 (12-20 (CALC)); CARBON DIOXIDE 23 mmol/l (22-30); CHLORIDE 104 mmol/l (95-108); GFR > 60 ML/MIN (>=60 (CALC)); GFR FOR AFR.AMER. > 60 ML/MIN (>=60 (CALC)); POTASSIUM 3.5 mmol/l (3.5-5.1); SGOT/AST 20 u/l (19-48); SODIUM 133 mmol/l (137-146); TOTAL PROTEIN 5.2 g/dL (6.3-8.2)
[2020-09-24 07:01] LABS: MAGNESIUM 1.9 mg/dL (1.6-2.3)
--- NOTE | 2020-09-24 07:42 | NUR ---
SHIFT CHANGE REPORT, PT AWAKE ALERT AND ORIENTED RESTING IN BED, C/O LEFT LEG PAIN AND STATES IT HAS ALWAYS BEEN THERE BUT HE DOES NOT WANT ANY PAIN MEDS AT THIS TIME, TELE MONITOR IN PLACE, IVF INFUSING, MONGE CATHETER IN PLACE WITH YELLOW URINE, CALL QUIROGA IN REACH AND BED LOCKED IN LOWEST POSITION.
--- NOTE | 2020-09-24 12:24 | NUR ---
MEDICAL TEAM ROUNDED AND DISCUSSED PLAN OF CARE, PT VOICES CONCERN ABOUT GOING HOME WITH CATHETER, EDUCATED ON CATHETER CARE AND BENEFITS OF KEEPING CATHETER IN X 1 MORE WEEK INSTRUCTED BY MD. PT SITTING UP IN RECLINER AT THIS TIME HAVING MEAL AFTER SHOWERING, ALL NEEDS ADDRESSED, WILL CONTINUE TO MONITOR.
--- NOTE | 2020-09-24 16:49 | NUR ---
SLEEPING IN SUPINE POSITION AT THIS TIME, BREATHING EVEN AND NON-LABORED, NO SIGN DISCOMFORT, AROUSES EASILY TO VERBAL STIMULI, CALL QUIROGA IN REACH.
--- NOTE | 2020-09-24 20:14 | NUR ---
PHYSICAL ASSESMENT COMPLETE. PT CURRENTLY DENIES PAIN OR DISCOMFORT. SCHEDULED MEDICATIONS AND PRN MEDICATION ADMINISTERED, SEE E-MAR. PTS GLOCOSE WAS 80 SO DM MEDS WILL BE HELD. PT DENIES ANY NEEDS AT THIS TIME. PLAN OF CARE REVIEWED, PT DENIES QUESTIONS, VERBALIZES UNDERSTANDING. ITEMS WITHIN REACH, BED LOCKED IN LOW POSITION W/ BEDRAILS UP X2. CALL QUIROGA WITHIN REACH, AGREES TO CALL PRN.
[2020-09-25 04:20] VITALS: BP 141/74
[2020-09-25 05:26] LABS: HEMATOCRIT 31.2 % (39.0-50.0); HEMOGLOBIN 9.8 g/dl (14.0-18.0); MEAN CELL VOLUME 90.7 fL CALC (80.0-100.0); MEAN CORPUSCULAR HGB 28.5 pG CALC (26.0-32.0); MEAN CORPUSCULAR HGB CONC 31.4 g/dL CAL (32.0-36.0); RED BLOOD COUNT 3.44 mill/uL (4.70-6.10); RED CELL DISTRI WIDTH 14.3 % (11.5-15.5)
[2020-09-25 05:48] LABS: ANION GAP 12 (6-22 (CALC)); BUN 19 mg/dL (8-23); BUN/CREATININE RATIO 20 (12-20 (CALC)); CARBON DIOXIDE 23 mmol/l (22-30); CHLORIDE 106 mmol/l (95-108); GFR > 60 ML/MIN (>=60 (CALC)); GFR FOR AFR.AMER. > 60 ML/MIN (>=60 (CALC)); POTASSIUM 3.7 mmol/l (3.5-5.1); SODIUM 137 mmol/l (137-146)
--- NOTE | 2020-09-25 06:30 | NUR ---
PATIENT ACCUCHECK IS 64, NURSE NOTIFIED.
--- NOTE | 2020-09-25 07:00 | NUR ---
ACCU CHECK AT THIS TIME IS 64 ORANGE JUICE AND SUGAR GIVEN AND BREAKFAST TRAY SENT TO PATIENT EARLY. WILL RECHECK ACCU CHECK AND MONITOR.
[2020-09-25 07:10] VITALS: BP 140/72
--- NOTE | 2020-09-25 07:10 | NUR ---
PATIENT SITTING UP IN CHAIR AT THIS TIME. 02 ON AT TWO LITERS SPO2 95%. PATIENT LEFT LOWER LEG DRESSING DRY AND INTACT AT THIS TIME. SECONDARY TEACHER DONE SEE INTERVENTIONS. CALL LIGHT AND PERSONAL ITEMS WITHIN REACH AT THIS MONGE PATENT AND DRAINGING MICHAEL COLOR URINE.
--- NOTE | 2020-09-25 09:00 | NUR ---
ACCU CHECK RE CHECKED AND BLOOD GLUCOSE LEVEL IS NOW 103. WILL CONTINUE TO MONITOR.
--- NOTE | 2020-09-25 09:46 | NUR ---
MONGE REMOVED AT THIS TIME PER ORDER. 250ML EMPTIED FROM MONGE CATH BAG. WILL CONTINUE TO MONITOR. PATIENT GIVEN URINAL AND ADVISED TO CALL WHEN HE HAS HIS FIRST VOID.
--- NOTE | 2020-09-25 10:01 | NUR ---
PATIENT NOTIFIED THIS NURSE THAT HE VOIDED IN URINAL AND THIS IS THE FIRST VOID AFTER MONGE CATH BEING REMOVED. KATHY VOIDED 100ML AT THIS TIME.
[2020-09-25 10:40] VITALS: BP 141/69
--- NOTE | 2020-09-25 12:04 | NUR ---
PATIENT LAYING IN BED AT THIS TIME. DENEIS ANY NEEDS NEURO CHECKS REMAIN UNCHANGED AT THIS TIME. SIDERAILS ARE UP CALL LIGHT IS WITHIN REACH.
--- NOTE | 2020-09-25 12:20 | NUR ---
LEFT LOWER LEG DRESSING REMOVED AT THIS TIME. WOUND CLEANSED WITH NORMAL SALINE AND REDRESSED UNDER ASEPTIC TECHNIQUE. PICTURES TAKE OF WOUND AT THIS TIME.
--- NOTE | 2020-09-25 14:01 | NUR ---
PATIENT CALLED OUT TO NURSE AT THIS TIME STATING HE WAS SHORT OF BREATH AND PATIENT FOUND TO HAVE HIS O2 OFF AT THIS TIME. 02 REPLACED AND SPO2 WAS ONLY 89% AT THIS TIME. OXYGEN PLACED ON 3 LITERS AT THIS TIME. WILL CONTINUE TO MONITOR.
[2020-09-25] MEDS ORDERED: CYMBALTA30 MG PO (14:31)
[2020-09-25] MEDS ORDERED: TAMSULOSIN0.4 MG PO (14:32)
[2020-09-25] MEDS ORDERED: OMNICEF300 MG PO (14:32)
[2020-09-25] MEDS ORDERED: ZITHROMAX250 MG PO (14:32)
--- NOTE | 2020-09-25 15:16 | NUR ---
PATIENT D/C AT THIS TIME. PATIENT VERBALIZES UNDERSTANDING OF D/C INSTRUCTION AT THIS TIME.
--- NOTE | 2020-09-25 15:45 | NUR ---
PATIENT D/C AT THIS TIME. Discharge instructions given. Patient verbalizes understanding of same. Discharged in stable condition via Wheelchair to Home with spouse. All belongings sent with pt.
[2020-09-26] MEDS ORDERED: PROVENTIL HFA IN (11:54)
[2020-09-26] MEDS ORDERED: MEDDOSEPAK PO (11:54)
[2020-12-04] MEDS ORDERED: ISOSORB MONO30 MG PO (11:39)
[2020-12-04] MEDS ORDERED: ADLT ASA LOW81 MG PO (11:39)
== END 2020-09-25 15:45 | disposition home or self-care (01) | DRG 871 ==
LOC: ED 18:18 → ED-I 19:45 → ED 19:59 → MS2 20:00 → ICU 20:00 → MS2 09-22 17:47
PROVIDERS: Emergency Medicine; Nurse Practitioner; ADMIT Internal Medicine; ATTEND Internal Medicine
PROC: 0T9B70Z Drainage of Bladder with Drainage Device, Via Natural or Artificial Opening (ICD-10-PCS; principal; 2020-09-22)
DX: A41.9 Sepsis, unspecified organism (principal); J18.9 Pneumonia, unspecified organism; I50.22 Chronic systolic (congestive) heart failure; E87.1 Hypo-osmolality and hyponatremia; L03.116 Cellulitis of left lower limb; I11.0 Hypertensive heart disease with heart failure; E11.51 Type 2 diabetes mellitus with diabetic peripheral angiopathy without gangrene; E78.5 Hyperlipidemia, unspecified; R09.02 Hypoxemia; K59.00 Constipation, unspecified; I25.119 Atherosclerotic heart disease of native coronary artery with unspecified angina pectoris; I48.91 Unspecified atrial fibrillation; R19.5 Other fecal abnormalities; R33.9 Retention of urine, unspecified; E87.6 Hypokalemia; F32.9 Major depressive disorder, single episode, unspecified; D64.9 Anemia, unspecified; S81.802A Unspecified open wound, left lower leg, initial encounter; X58.XXXA Exposure to other specified factors, initial encounter; B95.1 Streptococcus, group B, as the cause of diseases classified elsewhere; I25.2 Old myocardial infarction; Z89.412 Acquired absence of left great toe; Z89.411 Acquired absence of right great toe; Z79.4 Long term (current) use of insulin; Z86.14 Personal history of Methicillin resistant Staphylococcus aureus infection; Z95.1 Presence of aortocoronary bypass graft; Z95.5 Presence of coronary angioplasty implant and graft; Z89.421 Acquired absence of other right toe(s); Z95.0 Presence of cardiac pacemaker; Z87.891 Personal history of nicotine dependence; Z20.822 Contact with and (suspected) exposure to COVID-19; I73.9 Peripheral vascular disease, unspecified; Z98.890 Other specified postprocedural states
CPT/HCPCS: J1756; Q9967

== ENCOUNTER 2020-12-05 07:09 | Day surgery (SDC) | payer MEDICARE, BC ==
[~2020-12-05 07:09] MED LIST changes: +ADLT ASA LOW81 MG PO; +CYMBALTA30 MG PO; +ISOSORB MONO30 MG PO; +MEDDOSEPAK PO; +OMNICEF300 MG PO; +PROVENTIL HFA IN; +TAMSULOSIN0.4 MG PO; +ZITHROMAX250 MG PO
[2020-12-05 09:16] VITALS: BP 145/68
== END 2020-12-05 09:50 | disposition home or self-care (01) ==
LOC: ENDO 07:09 → ORM 08:00 → ENDO 08:00
PROVIDERS: ATTEND Surgery
PROC: 0DBM8ZX Excision of Descending Colon, Via Natural or Artificial Opening Endoscopic, Diagnostic (ICD-10-PCS; principal; 2020-12-05)
DX: D12.4 Benign neoplasm of descending colon (principal); Z86.010 Personal history of colon polyps

== ENCOUNTER 2021-05-11 16:59 | Observation (INO) | payer MEDICARE, BC ==
[~2021-05-11] VITALS: Ht 180.3 cm; Wt 101.0 kg
[~2021-05-11 16:59] MED LIST changes: -CARVEDILOL25 MG PO; +CARVEDILOL6.25 MG PO
--- NOTE | 2021-05-11 17:05 | NUR ---
SPO2 94% ON ROOM AIR.
--- NOTE | 2021-05-11 17:09 | NUR ---
PATIENT TO ROOM VIA WHEELCHAIR.
[2021-05-11 17:49] LABS: HEMATOCRIT 30.1 % (39.0-50.0); HEMOGLOBIN 9.4 g/dl (14.0-18.0); MEAN CORPUSCULAR HGB 27.2 pG CALC (26.0-32.0); MEAN CORPUSCULAR HGB CONC 31.2 g/dL CAL (32.0-36.0); NEUT# 10.14 thou/uL (1.82-7.42); RED BLOOD COUNT 3.46 mill/uL (4.70-6.10); RED CELL DISTRI WIDTH 16.6 % (11.5-15.5)
--- NOTE | 2021-05-11 17:55 | NUR ---
RESPIRATORY IN TO DRAW ABG
--- NOTE | 2021-05-11 18:00 | NUR ---
PT GIVEN URINAL TO PROVIDE URINE SAMPLE. PT REPORTS UNABLE AT THIS TIME.
[2021-05-11 18:02] LABS: MAGNESIUM 1.7 mg/dL (1.6-2.3)
[2021-05-11 18:07] LABS: ALBUMIN 3.1 g/dL (3.2-5.0); ALKALINE PHOSPHATASE 83 u/l (38-126); BILIRUBIN, TOTAL 1.1 mg/dL (0.0-1.4); BUN 16 mg/dL (8-23); BUN/CREATININE RATIO 16 (12-20 (CALC)); CHLORIDE 103 mmol/l (95-108); GFR > 60 ML/MIN (>=60 (CALC)); GFR FOR AFR.AMER. > 60 ML/MIN (>=60 (CALC)); POTASSIUM 4.4 mmol/l (3.5-5.1); SGOT/AST 21 u/l (19-48); SODIUM 134 mmol/l (137-146); TOTAL PROTEIN 6.2 g/dL (6.3-8.2)
--- NOTE | 2021-05-11 18:10 | NUR ---
PT'S VSS, SKIN PWD, BREATHING UNLABORED AT THIS TIME. PT STATES HE BECOMES SOB WITH ANY ACTIVITY AND IT STARTED LAST NIGHT BUT IMPROVED AND WORSE TODAY. PT REPORTS PRODUCTIVE COUGH AT TIME WITH YELLOWISH-GREENISH SPUTUM. PT DENIES ANY RECENT FEVERS. PT STABLE, WILL CONTINUE TO MONITOR.
[2021-05-11 18:11] LABS: ANION GAP 12 (6-22 (CALC)); CARBON DIOXIDE 23 mmol/l (22-30)
--- NOTE | 2021-05-11 19:10 | NUR ---
PT RESTING ON ED BED, AT THE BEDSIDE. DENIES ANY NEEDS.
--- NOTE | 2021-05-11 20:10 | NUR ---
PT WITH 500ML LIGHT CLEAR YELLOW URINE OUT IN URINAL. SAMPLE COLLECTED AND TO LAB. PT'S VSS, SKIN PWD, BREATHING UNLABORED. PT STABLE AT THIS TIME.
[2021-05-11 20:27] LABS: URINE BILIRUBIN - DIPSTICK NEGATIVE (NEGATIVE); URINE BLOOD DIPSTICK NEGATIVE (NEGATIVE); URINE COLOR YELLOW; URINE GLUCOSE - DIPSTICK NEGATIVE (NEGATIVE); URINE KETONE NEGATIVE (NEGATIVE); URINE LEUK ESTERASE NEGATIVE (NEGATIVE); URINE PROTEIN - DIPSTICK 30 mg/dL (NEG-TRACE); URINE UROBILINOGEN - DIPSTICK 0.2 E.U./dL (0.2)
[2021-05-11 20:28] LABS: URINE NITRITE - DIPSTICK NEGATIVE (Negative)
[2021-05-11 20:37] LABS: TSH, 3RD GENERATION 2.47 uIU/mL (0.47 - 4.68)
[2021-05-11 20:40] LABS: URINE SQUAMOUS EPITHELIAL CELL FEW EPI/hpf (0-FEW); URINE WBC 0-2 WBC/hpf (0-5)
--- NOTE | 2021-05-11 20:45 | NUR ---
REPORT GIVEN TO DARRYL ALMAGUER FOR TRANSITION OF CARE.
--- NOTE | 2021-05-11 20:50 | NUR ---
PHONE REPORT TO NURSE YAMILA IN ICU
--- NOTE | 2021-05-11 20:55 | NUR ---
PT TRANSPORTED TO ICU7 VIA ATRETCHER ON TELE AND O CONDITION
--- NOTE | 2021-05-11 21:01 | NUR ---
71 yr old white male admitted icu7 as medsurg tele overflow. amb self to br to void. dat well. bed weight obtained. o2 cont per nc. masking machine feeder shows sinus rhythm 1st degree avb ivcd hr 67. #18 rac saline lock. history rec'd per pt & er record. oriented to room. fall precautions initiated.
[2021-05-11 21:15] VITALS: BP 161/81
[2021-05-11 21:30] VITALS: BP 167/74
[2021-05-11 22:00] VITALS: BP 131/65
[2021-05-12] VITALS: BP 117/56
--- NOTE | 2021-05-12 00:10 | NUR ---
lab here. blood drawn.
[2021-05-12 04:00] VITALS: BP 135/65
--- NOTE | 2021-05-12 06:10 | NUR ---
lab here. blood drawn
[2021-05-12 06:40] LABS: ANION GAP 12 (6-22 (CALC)); BUN 16 mg/dL (8-23); BUN/CREATININE RATIO 16 (12-20 (CALC)); CARBON DIOXIDE 25 mmol/l (22-30); CHLORIDE 103 mmol/l (95-108); GFR > 60 ML/MIN (>=60 (CALC)); GFR FOR AFR.AMER. > 60 ML/MIN (>=60 (CALC)); POTASSIUM 3.7 mmol/l (3.5-5.1); SODIUM 137 mmol/l (137-146)
[2021-05-12 07:00] VITALS: BP 145/70
[2021-05-12] MEDS ORDERED: OXYCOD-APAP1 TA1 PO (08:01)
[2021-05-12] MEDS ORDERED: CYMBALTA30 MG PO (08:02)
--- NOTE | 2021-05-12 08:18 | NUR ---
PT SEEN AWAKE, ALERT, ORIENTED X 3. LUNGS ARE CLEAR, RA. PT VOIDING WELL, PER CHF AND LASIX. LEGS FADUMO, MINIMAL SWELLING NOTED.
[2021-05-12 09:00] VITALS: BP 147/68
[2021-05-12] MEDS ORDERED: DOXYCYCLINE HY100 MG PO (09:16)
[2021-05-12 09:46] VITALS: BP 135/65
--- NOTE | 2021-05-12 11:05 | NUR ---
PT HAS BEEN SEEN BY DR DOCKERY THIS MORNING AND WILL BE DISCHARGED TO HOME TODAY. LUNGS CLEAR, 2 LPM PRN. VIBRAMYCIN PROVIDED ORDERED. HAS BEEN CALLED AND IS ON HER WAY.
== END 2021-05-12 11:30 | disposition home or self-care (01) ==
LOC: ED 16:59 → ICU 20:02
PROVIDERS: Emergency Medicine; ADMIT Internal Medicine; ATTEND Internal Medicine
DX: I11.0 Hypertensive heart disease with heart failure (principal); I50.9 Heart failure, unspecified; J40 Bronchitis, not specified as acute or chronic; E11.51 Type 2 diabetes mellitus with diabetic peripheral angiopathy without gangrene; I25.10 Atherosclerotic heart disease of native coronary artery without angina pectoris; I48.91 Unspecified atrial fibrillation; E78.5 Hyperlipidemia, unspecified; E11.319 Type 2 diabetes mellitus with unspecified diabetic retinopathy without macular edema; H54.62 Unqualified visual loss, left eye, normal vision right eye; I25.2 Old myocardial infarction; Z95.1 Presence of aortocoronary bypass graft; Z95.5 Presence of coronary angioplasty implant and graft; Z95.0 Presence of cardiac pacemaker; Z79.4 Long term (current) use of insulin; Z87.891 Personal history of nicotine dependence; Z89.421 Acquired absence of other right toe(s); Z20.822 Contact with and (suspected) exposure to COVID-19

== ENCOUNTER 2021-05-21 10:23 | Observation (INO) | payer MEDICARE, BC ==
[~2021-05-21] VITALS: Ht 180.3 cm; Wt 100.0 kg
[~2021-05-21 10:23] MED LIST changes: +DOXYCYCLINE HY100 MG PO; +OXYCOD-APAP1 TA1 PO
--- NOTE | 2021-05-21 10:25 | NUR ---
PT TO ROOM VIA WC MAX TRANSFER TO STRETCHER C/O MIDSTERNAL CHEST PAIN
[2021-05-21 10:56] LABS: HEMATOCRIT 31.5 % (39.0-50.0); HEMOGLOBIN 9.6 g/dl (14.0-18.0); IMMATURE GRANULOCYTES 0.8 % (0.0-5.0); MEAN CELL VOLUME 86.5 fL CALC (80.0-100.0); MEAN CORPUSCULAR HGB 26.4 pG CALC (26.0-32.0); MEAN CORPUSCULAR HGB CONC 30.5 g/dL CAL (32.0-36.0); NEUT# 8.71 thou/uL (1.82-7.42); RED BLOOD COUNT 3.64 mill/uL (4.70-6.10); RED CELL DISTRI WIDTH 16.2 % (11.5-15.5)
--- NOTE | 2021-05-21 10:57 | NUR ---
PT DENIES CHEST PAIN AT THIS TIME. ATIVAN PROVIDED FOR "PANIC ATTACK" PER PT WITH POSITIVE RESULTS.
[2021-05-21 11:13] LABS: ALKALINE PHOSPHATASE 90 u/l (38-126); AMYLASE 33 u/l (30-110); ANION GAP 16 (6-22 (CALC)); BUN 22 mg/dL (8-23); BUN/CREATININE RATIO 21 (12-20 (CALC)); CARBON DIOXIDE 20 mmol/l (22-30); CHLORIDE 105 mmol/l (95-108); GFR > 60 ML/MIN (>=60 (CALC)); GFR FOR AFR.AMER. > 60 ML/MIN (>=60 (CALC)); POTASSIUM 4.4 mmol/l (3.5-5.1); SGOT/AST 24 u/l (19-48); SODIUM 136 mmol/l (137-146); TOTAL PROTEIN 6.2 g/dL (6.3-8.2)
--- NOTE | 2021-05-21 11:50 | NUR ---
Pt. sitting up in bed awake and alert. Skin w/p/d. No distress noted. pt. denies pain. Voices no questions or concerns. @ bedside.
[2021-05-21] MEDS ORDERED: POLYMYXIN B/ OD (12:05)
--- NOTE | 2021-05-21 14:00 | NUR ---
PT RESTING ON STRETCHER AWARE OF PENDING ADMISSION. DENIES CHEST PAIN.
--- NOTE | 2021-05-21 14:31 | NUR ---
REPORT CALLED TO MICK NURSE ON [facility] ADVISED OF ALL EVENTS, MEDS, ATTACHMENTS
--- NOTE | 2021-05-21 14:45 | NUR ---
PT TO [facility]SUR[facility] VIA WC ON TELEMETRY, O2 2L/M NC IN STABLE CONDITION, IV SITE HEALTHY.
--- NOTE | 2021-05-21 15:04 | NUR ---
PATIENT TO ROOM VIA WHEELCHAIR ACCOMPANIED BY ER NURSE AND SPOUSE. PATIENT IS ALERT AND ORIENTED X3. ADMISSION ASSESSMENT COMPLETED AT THIS TIME. IV PATENT X1. ORIENTED PATIENT TO ROOM AND UNIT. CALL LIHT IN REACH. WILL CONTINUE TO MONITOR.
[2021-05-21 15:27] VITALS: BP 166/67
--- NOTE | 2021-05-21 15:28 | NUR ---
patient weight was 101kg. nurse notified of patient blood pressure.
--- NOTE | 2021-05-21 18:41 | NUR ---
interrogated patient's pacemaker at this time.
[2021-05-21 19:00] VITALS: BP 155/59
--- NOTE | 2021-05-21 19:34 | NUR ---
PATIENT ALERT AND ORIENTED. ABLE TO MAKE NEEDS KNOWN. ASSESSMENT COMPLETE. NO COMPLAINTS OF PAIN OR DISCOMFORT. NO SIGNS OF DISTRESS. ACTIVE BOWEL SOUNDS PRESENT. PATIENT USES URINAL. #20 TO THE RT. AC REMAINS PATENT. CALL LIGHT AND BELONGINGS REMAIN IN REACH.
--- NOTE | 2021-05-21 21:10 | NUR ---
NOTIFIED ELEMENTARY PRINCIPAL PROVIDER OF PATIENT REFUSING SCHEDULED LEVEMIR.
[2021-05-21 21:26] LABS: URINE BILIRUBIN - DIPSTICK NEGATIVE (NEGATIVE); URINE BLOOD DIPSTICK NEGATIVE (NEGATIVE); URINE COLOR YELLOW; URINE GLUCOSE - DIPSTICK NEGATIVE (NEGATIVE); URINE KETONE NEGATIVE (NEGATIVE); URINE LEUK ESTERASE NEGATIVE (NEGATIVE); URINE PH 6.5 (4.5-8.0); URINE PROTEIN - DIPSTICK 100 mg/dL (NEG-TRACE); URINE SPECIFIC GRAVITY >=1.030
[2021-05-21 21:27] LABS: URINE NITRITE - DIPSTICK NEGATIVE (Negative)
[2021-05-21 21:32] LABS: URINE RBC 0-2 RBC/hpf (0-5); URINE WBC 0-2 WBC/hpf (0-5)
[2021-05-22] VITALS: BP 142/57
--- NOTE | 2021-05-22 01:06 | NUR ---
PATIENT LAYING ON HIS LEFT SIDE. NO SIGNS OF DISTRESS. NO COMPLAINTS OF CHEST PAIN VOICED. WARM BLANKET PROVIDED EARLIER PER PATIENT REQUEST. CALL LIGHT AND BELONGINGS REMAIN IN REACH.
[2021-05-22 04:00] VITALS: BP 136/61
--- NOTE | 2021-05-22 04:30 | NUR ---
PATIENT RESTING IN BED. NO COMPLAINTS VOICED AT THIS TIME. ABLE TO MAKE NEEDS KNOWN. TELE MONITOR REMAINS IN PLACE. PATIENT HASNT COMPLAINED OF ANY CHEST PAIN. NO SIGNS OF DISTRESS NOTED. CALL LIGHT AND BELONGINGS REMAIN IN REACH.
--- NOTE | 2021-05-22 07:10 | NUR ---
REPORT FROM SERGO ANDREWS. ASSUMED PT CARE.
[2021-05-22 07:32] VITALS: BP 137/64
[2021-05-22 09:28] VITALS: BP 127/57
--- NOTE | 2021-05-22 11:12 | NUR ---
PHYSICIAN AT BEDSIDE.
--- NOTE | 2021-05-22 13:35 | NUR ---
IV site discontinued, cath intact. No edema , no redness, voices no discomfort.
--- NOTE | 2021-05-22 13:47 | NUR ---
Discharge instructions given. Patient verbalizes understanding of same. Discharged in stable condition via Wheelchair to Home with spouse. All belongings sent with pt.
== END 2021-05-22 13:47 | disposition home or self-care (01) ==
LOC: ED 10:23 → MS2 12:14 → ED 12:14 → MS2 14:22 → ED 14:45 → MS2 05-22 13:47
PROVIDERS: Emergency Medicine; ADMIT Internal Medicine; ATTEND Internal Medicine
DX: I25.119 Atherosclerotic heart disease of native coronary artery with unspecified angina pectoris (principal); I11.0 Hypertensive heart disease with heart failure; I50.23 Acute on chronic systolic (congestive) heart failure; I25.5 Ischemic cardiomyopathy; E11.319 Type 2 diabetes mellitus with unspecified diabetic retinopathy without macular edema; E11.51 Type 2 diabetes mellitus with diabetic peripheral angiopathy without gangrene; I48.0 Paroxysmal atrial fibrillation; J40 Bronchitis, not specified as acute or chronic; E78.5 Hyperlipidemia, unspecified; H54.62 Unqualified visual loss, left eye, normal vision right eye; I25.2 Old myocardial infarction; Z95.1 Presence of aortocoronary bypass graft; Z95.810 Presence of automatic (implantable) cardiac defibrillator; Z95.5 Presence of coronary angioplasty implant and graft; Z79.4 Long term (current) use of insulin; Z89.411 Acquired absence of right great toe; Z79.02 Long term (current) use of antithrombotics/antiplatelets; Z98.62 Peripheral vascular angioplasty status; Z79.01 Long term (current) use of anticoagulants; Z98.890 Other specified postprocedural states; Z87.891 Personal history of nicotine dependence; Z20.822 Contact with and (suspected) exposure to COVID-19
CPT/HCPCS: J2060

== ENCOUNTER 2021-07-05 20:36 | Emergency (ER) | payer MEDICARE, BC ==
[~2021-07-05] VITALS: Ht 180.3 cm; Wt 100.0 kg
[~2021-07-05 20:36] MED LIST changes: +CEPHALEXIN500 MG PO; +POLYMYXIN B/ OD
[2021-07-05 22:17] VITALS: BP 165/76
[2021-07-05 22:56] LABS: HEMATOCRIT 29.3 % (39.0-50.0); HEMOGLOBIN 8.7 g/dl (14.0-18.0); IMMATURE GRANULOCYTES 0.3 % (0.0-5.0); MEAN CELL VOLUME 85.4 fL CALC (80.0-100.0); MEAN CORPUSCULAR HGB 25.4 pG CALC (26.0-32.0); MEAN CORPUSCULAR HGB CONC 29.7 g/dL CAL (32.0-36.0); NEUT# 7.96 thou/uL (1.82-7.42); RED BLOOD COUNT 3.43 mill/uL (4.70-6.10); RED CELL DISTRI WIDTH 15.8 % (11.5-15.5)
[2021-07-05 23:13] LABS: ALBUMIN 3.3 g/dL (3.2-5.0); ALKALINE PHOSPHATASE 100 u/l (38-126); ANION GAP 13 (6-22 (CALC)); BUN 13 mg/dL (8-23); BUN/CREATININE RATIO 16 (12-20 (CALC)); CARBON DIOXIDE 24 mmol/l (22-30); CHLORIDE 104 mmol/l (95-108); CREATININE 0.8 mg/dL (0.7-1.3); GFR > 60 ML/MIN (>=60 (CALC)); GFR FOR AFR.AMER. > 60 ML/MIN (>=60 (CALC)); POTASSIUM 3.5 mmol/l (3.5-5.1); SGOT/AST 16 u/l (19-48); SODIUM 137 mmol/l (137-146); TOTAL PROTEIN 6.7 g/dL (6.3-8.2)
[2021-07-05 23:22] LABS: BILIRUBIN, TOTAL 1.3 mg/dL (0.0-1.4)
== END 2021-07-06 01:05 | disposition short-term general hospital (02) ==
LOC: ED 20:36
PROVIDERS: Family Medicine
DX: E11.69 Type 2 diabetes mellitus with other specified complication (principal); M86.8X4 Other osteomyelitis, hand; S60.412A Abrasion of right middle finger, initial encounter; I10 Essential (primary) hypertension; W22.8XXA Striking against or struck by other objects, initial encounter; Y92.89 Other specified places as the place of occurrence of the external cause; Y99.0 Civilian activity done for income or pay; Z79.4 Long term (current) use of insulin

== ENCOUNTER 2021-08-27 11:46 | Inpatient (IN) | payer MEDICARE, BC ==
[~2021-08-27] VITALS: Ht 180.3 cm; Wt 93.6 kg
[~2021-08-27 11:46] MED LIST changes: +LISINOPRIL10 MG PO; -LISINOPRIL20 MG PO
[2021-08-27 12:48] LABS: HEMATOCRIT 32.5 % (39.0-50.0); HEMOGLOBIN 9.4 g/dl (14.0-18.0); IMMATURE GRANULOCYTES 0.3 % (0.0-5.0); MEAN CELL VOLUME 80.2 fL CALC (80.0-100.0); MEAN CORPUSCULAR HGB 23.2 pG CALC (26.0-32.0); MEAN CORPUSCULAR HGB CONC 28.9 g/dL CAL (32.0-36.0); NEUT# 6.38 thou/uL (1.82-7.42); RED BLOOD COUNT 4.05 mill/uL (4.70-6.10); RED CELL DISTRI WIDTH 16.9 % (11.5-15.5)
[2021-08-27 13:01] LABS: ALBUMIN 3.9 g/dL (3.2-5.0); ALKALINE PHOSPHATASE 85 u/l (38-126); BUN 48 mg/dL (8-23); BUN/CREATININE RATIO 23 (12-20 (CALC)); CHLORIDE 104 mmol/l (95-108); CREATININE 2.1 mg/dL (0.7-1.3); GFR FOR AFR.AMER. 38 ML/MIN (>=60 (CALC)); GFR OTHER RACES 31 ML/MIN (>=60 (CALC)); SGOT/AST 25 u/l (19-48); SODIUM 134 mmol/l (137-146); TOTAL PROTEIN 7.5 g/dL (6.3-8.2)
[2021-08-27 13:13] LABS: ANION GAP 18 (6-22 (CALC)); BILIRUBIN, TOTAL 0.9 mg/dL (0.0-1.4); CARBON DIOXIDE 17 mmol/l (22-30); MYOGLOBIN 57 ng/mL (0 - 121)
[2021-08-27] MEDS ORDERED: DOCUSATE SODIUM50 MG (13:44)
[2021-08-27] MEDS ORDERED: SPIRONOLACTONE25 MG PO (13:45)
[2021-08-27] MEDS ORDERED: JARDIANCE10 MG (13:45)
[2021-08-27 14:18] LABS: URINE BILIRUBIN - DIPSTICK NEGATIVE (NEGATIVE); URINE BLOOD DIPSTICK NEGATIVE (NEGATIVE); URINE COLOR YELLOW; URINE GLUCOSE - DIPSTICK >=1000 mg/dL (NEGATIVE); URINE KETONE NEGATIVE (NEGATIVE); URINE LEUK ESTERASE NEGATIVE (NEGATIVE); URINE PH 5.5 (4.5-8.0); URINE PROTEIN - DIPSTICK NEGATIVE (NEG-TRACE); URINE SPECIFIC GRAVITY 1.015; URINE UROBILINOGEN - DIPSTICK 0.2 E.U./dL (0.2)
[2021-08-27 14:20] LABS: URINE NITRITE - DIPSTICK NEGATIVE (Negative)
[2021-08-27 18:08] VITALS: BP 122/65
[2021-08-27 19:16] VITALS: BP 136/55
[2021-08-28] VITALS (7 sets, daily range): BP systolic 92–159; BP diastolic 51–70
[2021-08-28 05:33] LABS: HEMATOCRIT 31.7 % (39.0-50.0); HEMOGLOBIN 9.4 g/dl (14.0-18.0); IMMATURE GRANULOCYTES 0.1 % (0.0-5.0); MEAN CELL VOLUME 79.4 fL CALC (80.0-100.0); MEAN CORPUSCULAR HGB 23.6 pG CALC (26.0-32.0); MEAN CORPUSCULAR HGB CONC 29.7 g/dL CAL (32.0-36.0); NEUT# 6.25 thou/uL (1.82-7.42); RED BLOOD COUNT 3.99 mill/uL (4.70-6.10); RED CELL DISTRI WIDTH 16.9 % (11.5-15.5)
[2021-08-28 05:41] LABS: CREATININE 1.9 mg/dL (0.7-1.3); MAGNESIUM 2.4 mg/dL (1.6-2.3); POTASSIUM 4.6 mmol/l (3.5-5.1)
[2021-08-28] MEDS ORDERED: TRESIBA FL200 UNIT/M IJ (10:09)
[2021-08-28] MEDS ORDERED: ALBUTEROL108 MCG/AC IN (10:14)
[2021-08-28] MEDS ORDERED: ASPIRIN 81 LOW81 MG PO (10:16)
[2021-08-28] MEDS ORDERED: STOOL SOFT PO (15:28)
[2021-08-28] MEDS ORDERED: MAPAP325 MG PO (15:29)
[2021-08-28] MEDS ORDERED: JARDIANCE10 MG PO (15:30)
[2021-08-28] MEDS ORDERED: SPIRONOLACTONE25 MG PO (15:31)
[2021-08-28] MEDS ORDERED: CORDARONE/200 MG/TAB PO (15:31)
[2021-08-28] MEDS ORDERED: LIPITOR80 M1 PO (15:32)
[2021-08-28] MEDS ORDERED: CLOPIDOGREL75 MG PO (15:33)
[2021-08-28] MEDS ORDERED: CARVEDILOL6.25 MG PO (15:33)
[2021-08-28] MEDS ORDERED: FUROSEMIDE20 MG PO (15:34)
[2021-08-28] MEDS ORDERED: TRESIBA FL200 UNIT/M SC (15:35)
[2021-08-28] MEDS ORDERED: PROAIR HFA108 MCG/AC IN (15:38)
[2021-08-28] MEDS ORDERED: ASPIRIN81 MG PO (15:39)
[2021-08-28] MEDS ORDERED: SYSTAN1 OD (15:40)
[2021-08-28] MEDS ORDERED: LISINOPRIL10 MG PO (15:40)
[2021-08-29] VITALS (8 sets, daily range): BP systolic 104–143; BP diastolic 39–60
[2021-08-29 05:25] LABS: HEMOGLOBIN 9.6 g/dl (14.0-18.0); IMMATURE GRANULOCYTES 0.1 % (0.0-5.0); MEAN CELL VOLUME 79.3 fL CALC (80.0-100.0); MEAN CORPUSCULAR HGB 23.1 pG CALC (26.0-32.0); MEAN CORPUSCULAR HGB CONC 29.1 g/dL CAL (32.0-36.0); NEUT# 5.68 thou/uL (1.82-7.42); RED BLOOD COUNT 4.16 mill/uL (4.70-6.10); RED CELL DISTRI WIDTH 16.8 % (11.5-15.5)
[2021-08-29 05:54] LABS: ALBUMIN 3.6 g/dL (3.2-5.0); CREATININE 1.5 mg/dL (0.7-1.3); MAGNESIUM 2.4 mg/dL (1.6-2.3)
[2021-08-29 05:55] LABS: POTASSIUM 5.2 mmol/l (3.5-5.1)
[2021-08-30] VITALS (7 sets, daily range): BP systolic 122–149; BP diastolic 40–68
[2021-08-30 04:44] LABS: BUN 38 mg/dL (8-23); BUN/CREATININE RATIO 28 (12-20 (CALC)); CARBON DIOXIDE 20 mmol/l (22-30); CHLORIDE 108 mmol/l (95-108); CREATININE 1.4 mg/dL (0.7-1.3); GFR FOR AFR.AMER. > 60 ML/MIN (>=60 (CALC)); GFR OTHER RACES 50 ML/MIN (>=60 (CALC)); SODIUM 138 mmol/l (137-146)
[2021-08-30 04:50] LABS: ANION GAP 16 (6-22 (CALC)); POTASSIUM 5.5 mmol/l (3.5-5.1)
[2021-08-31] VITALS (7 sets, daily range): BP systolic 106–139; BP diastolic 27–64
[2021-08-31 05:54] LABS: HEMATOCRIT 33.6 % (39.0-50.0); HEMOGLOBIN 9.8 g/dl (14.0-18.0); MEAN CELL VOLUME 79.4 fL CALC (80.0-100.0); MEAN CORPUSCULAR HGB 23.2 pG CALC (26.0-32.0); MEAN CORPUSCULAR HGB CONC 29.2 g/dL CAL (32.0-36.0); RED BLOOD COUNT 4.23 mill/uL (4.70-6.10); RED CELL DISTRI WIDTH 16.7 % (11.5-15.5)
[2021-08-31 06:12] LABS: CREATININE 1.5 mg/dL (0.7-1.3)
[2021-09-01 00:25] VITALS: BP 130/21
[2021-09-01 03:41] VITALS: BP 125/47
[2021-09-01 09:57] VITALS: BP 123/54
[2021-09-01 11:22] VITALS: BP 103/47
[2021-09-01 16:45] VITALS: BP 115/56
[2021-09-01 19:23] VITALS: BP 146/49
[2021-09-02 00:18] VITALS: BP 124/22
[2021-09-02 04:07] VITALS: BP 118/32
[2021-09-02 06:50] LABS: HEMOGLOBIN 9.8 g/dl (14.0-18.0); MEAN CELL VOLUME 78.8 fL CALC (80.0-100.0); MEAN CORPUSCULAR HGB 23.4 pG CALC (26.0-32.0); MEAN CORPUSCULAR HGB CONC 29.7 g/dL CAL (32.0-36.0); RED BLOOD COUNT 4.19 mill/uL (4.70-6.10); RED CELL DISTRI WIDTH 16.8 % (11.5-15.5)
[2021-09-02 06:55] LABS: CREATININE 1.6 mg/dL (0.7-1.3); MAGNESIUM 2.7 mg/dL (1.6-2.3)
[2021-09-02 07:01] LABS: POTASSIUM 5.6 mmol/l (3.5-5.1)
[2021-09-02 07:44] VITALS: BP 112/54
[2021-09-02 10:40] VITALS: BP 117/44
[2021-09-02] MEDS ORDERED: FUROSEMIDE20 MG PO (15:13)
[2021-09-02 15:24] VITALS: BP 119/51
== END 2021-09-02 16:53 | disposition home or self-care (01) | DRG 312 ==
LOC: ED 11:46 → ED-I 15:15 → ED 15:18 → MS2 15:19
PROVIDERS: Emergency Medicine; Hospitalist; Nurse Practitioner; ADMIT Internal Medicine; ATTEND Internal Medicine
DX: I95.2 Hypotension due to drugs (principal); I50.22 Chronic systolic (congestive) heart failure; N17.9 Acute kidney failure, unspecified; E86.0 Dehydration; I11.0 Hypertensive heart disease with heart failure; E11.51 Type 2 diabetes mellitus with diabetic peripheral angiopathy without gangrene; I25.5 Ischemic cardiomyopathy; I48.0 Paroxysmal atrial fibrillation; E11.319 Type 2 diabetes mellitus with unspecified diabetic retinopathy without macular edema; I25.10 Atherosclerotic heart disease of native coronary artery without angina pectoris; E87.5 Hyperkalemia; E78.5 Hyperlipidemia, unspecified; E11.649 Type 2 diabetes mellitus with hypoglycemia without coma; K59.00 Constipation, unspecified; I25.2 Old myocardial infarction; T50.1X5A Adverse effect of loop [high-ceiling] diuretics, initial encounter; Z95.5 Presence of coronary angioplasty implant and graft; Z95.810 Presence of automatic (implantable) cardiac defibrillator; Z95.1 Presence of aortocoronary bypass graft; Z98.62 Peripheral vascular angioplasty status; Z79.84 Long term (current) use of oral hypoglycemic drugs; Z20.822 Contact with and (suspected) exposure to COVID-19; Z95.818 Presence of other cardiac implants and grafts; Z87.891 Personal history of nicotine dependence; Z79.02 Long term (current) use of antithrombotics/antiplatelets; Z79.82 Long term (current) use of aspirin
CPT/HCPCS: G0378; S0164

== ENCOUNTER 2021-10-06 16:10 | Observation (INO) | payer MEDICARE, BC ==
[2021-10-06] VITALS (11 sets, daily range): BP systolic 125–171; BP diastolic 57–76
[~2021-10-06] VITALS: Ht 180.3 cm; Wt 105.0 kg
[~2021-10-06 16:10] MED LIST changes: +ALBUTEROL108 MCG/AC IN; +ASPIRIN 81 LOW81 MG PO; +DOCUSATE SODIUM50 MG; +JARDIANCE10 MG; +JARDIANCE10 MG PO; +LIPITOR80 M1 PO; +MAPAP325 MG PO; +PROAIR HFA108 MCG/AC IN; +SPIRONOLACTONE25 MG PO; +STOOL SOFT PO; +SYSTAN1 OD; +TRESIBA FL200 UNIT/M IJ; +TRESIBA FL200 UNIT/M SC
[2021-10-06 17:02] LABS: IMMATURE GRANULOCYTES 0.6 % (0.0-5.0); MEAN CORPUSCULAR HGB CONC 29.5 g/dL CAL (32.0-36.0); NEUT# 5.79 thou/uL (1.82-7.42); RED BLOOD COUNT 3.22 mill/uL (4.70-6.10)
[2021-10-06 17:10] LABS: HEMATOCRIT 25.1 % (39.0-50.0); HEMOGLOBIN 7.4 g/dl (14.0-18.0)
[2021-10-06 17:17] LABS: ALBUMIN 3.6 g/dL (3.2-5.0); ALKALINE PHOSPHATASE 110 u/l (38-126); CARBON DIOXIDE 22 mmol/l (22-30); CHLORIDE 108 mmol/l (95-108); CREATININE 1.2 mg/dL (0.7-1.3); GFR FOR AFR.AMER. > 60 ML/MIN (>=60 (CALC)); GFR OTHER RACES 60 ML/MIN (>=60 (CALC)); SGOT/AST 18 u/l (19-48); SODIUM 139 mmol/l (137-146); TOTAL PROTEIN 6.6 g/dL (6.3-8.2)
[2021-10-06 17:19] LABS: ANION GAP 12 (6-22 (CALC)); BILIRUBIN, TOTAL 1.5 mg/dL (0.0-1.4); BUN 21 mg/dL (8-23); BUN/CREATININE RATIO 18 (12-20 (CALC)); POTASSIUM 3.4 mmol/l (3.5-5.1)
[2021-10-06 18:52] LABS: URINE BILIRUBIN - DIPSTICK NEGATIVE (NEGATIVE); URINE BLOOD DIPSTICK NEGATIVE (NEGATIVE); URINE COLOR YELLOW; URINE GLUCOSE - DIPSTICK NEGATIVE (NEGATIVE); URINE KETONE NEGATIVE (NEGATIVE); URINE LEUK ESTERASE NEGATIVE (NEGATIVE); URINE PH 5.5 (4.5-8.0); URINE PROTEIN - DIPSTICK NEGATIVE (NEG-TRACE); URINE SPECIFIC GRAVITY 1.015; URINE UROBILINOGEN - DIPSTICK 0.2 E.U./dL (0.2)
[2021-10-06 18:56] LABS: URINE NITRITE - DIPSTICK NEGATIVE (Negative)
[2021-10-07 04:17] VITALS: BP 134/57
[2021-10-07 05:35] LABS: HEMATOCRIT 26.1 % (39.0-50.0); HEMOGLOBIN 7.8 g/dl (14.0-18.0); MEAN CELL VOLUME 77.4 fL CALC (80.0-100.0); MEAN CORPUSCULAR HGB 23.1 pG CALC (26.0-32.0); MEAN CORPUSCULAR HGB CONC 29.9 g/dL CAL (32.0-36.0); RED BLOOD COUNT 3.37 mill/uL (4.70-6.10); RED CELL DISTRI WIDTH 18.9 % (11.5-15.5)
[2021-10-07 05:47] LABS: ANION GAP 12 (6-22 (CALC)); BUN 21 mg/dL (8-23); BUN/CREATININE RATIO 19 (12-20 (CALC)); CARBON DIOXIDE 24 mmol/l (22-30); CHLORIDE 108 mmol/l (95-108); CREATININE 1.1 mg/dL (0.7-1.3); GFR FOR AFR.AMER. > 60 ML/MIN (>=60 (CALC)); GFR OTHER RACES > 60 ML/MIN (>=60 (CALC)); POTASSIUM 3.2 mmol/l (3.5-5.1); SODIUM 141 mmol/l (137-146)
[2021-10-07 06:01] LABS: MAGNESIUM 1.7 mg/dL (1.6-2.3)
[2021-10-07 07:24] VITALS: BP 137/74
[2021-10-07] MEDS ORDERED: OMNICEF300 M1 PO (12:23)
[2021-10-07] MEDS ORDERED: AZITHROMYCIN500 MG PO (12:23)
[2021-10-07 14:50] VITALS: BP 132/74
== END 2021-10-07 15:50 | disposition home or self-care (01) ==
LOC: ED 16:10 → ED-I 18:15 → MS2 18:26 → ED 18:26 → MS2 10-07 15:50
PROVIDERS: Internal Medicine; ADMIT Hospitalist; ATTEND Hospitalist
DX: I11.0 Hypertensive heart disease with heart failure (principal); I50.9 Heart failure, unspecified; S81.802A Unspecified open wound, left lower leg, initial encounter; S81.801A Unspecified open wound, right lower leg, initial encounter; I25.5 Ischemic cardiomyopathy; I48.0 Paroxysmal atrial fibrillation; E11.51 Type 2 diabetes mellitus with diabetic peripheral angiopathy without gangrene; E11.319 Type 2 diabetes mellitus with unspecified diabetic retinopathy without macular edema; E78.5 Hyperlipidemia, unspecified; I25.2 Old myocardial infarction; X58.XXXA Exposure to other specified factors, initial encounter; Z95.820 Peripheral vascular angioplasty status with implants and grafts; Z79.4 Long term (current) use of insulin; Z95.1 Presence of aortocoronary bypass graft; Z95.810 Presence of automatic (implantable) cardiac defibrillator; Z95.5 Presence of coronary angioplasty implant and graft; Z95.818 Presence of other cardiac implants and grafts; Z87.891 Personal history of nicotine dependence; Z20.822 Contact with and (suspected) exposure to COVID-19
CPT/HCPCS: G0378; J1650

== ENCOUNTER 2021-12-16 22:16 | Emergency (ER) | payer MEDICARE, BC ==
[~2021-12-16] VITALS: Ht 180.3 cm; Wt 94.6 kg
[~2021-12-16 22:16] MED LIST changes: +AZITHROMYCIN500 MG PO; +OMNICEF300 M1 PO
[2021-12-16 22:30] VITALS: BP 164/68
[2021-12-16 22:41] VITALS: BP 165/73
[2021-12-16 22:46] LABS: HEMATOCRIT 28.4 % (39.0-50.0); HEMOGLOBIN 8.3 g/dl (14.0-18.0); IMMATURE GRANULOCYTES 0.4 % (0.0-5.0); MEAN CELL VOLUME 79.3 fL CALC (80.0-100.0); MEAN CORPUSCULAR HGB 23.2 pG CALC (26.0-32.0); MEAN CORPUSCULAR HGB CONC 29.2 g/dL CAL (32.0-36.0); NEUT# 6.89 thou/uL (1.82-7.42); RED BLOOD COUNT 3.58 mill/uL (4.70-6.10); RED CELL DISTRI WIDTH 17.3 % (11.5-15.5)
[2021-12-16 22:51] VITALS: BP 165/77
[2021-12-16 22:57] LABS: ALBUMIN 4.2 g/dL (3.2-5.0); ALKALINE PHOSPHATASE 121 u/l (38-126); ANION GAP 14 (6-22 (CALC)); BUN 18 mg/dL (8-23); BUN/CREATININE RATIO 16 (12-20 (CALC)); CARBON DIOXIDE 26 mmol/l (22-30); CHLORIDE 102 mmol/l (95-108); CPK 50 u/l (52-200); CREATININE 1.1 mg/dL (0.7-1.3); GFR FOR AFR.AMER. > 60 ML/MIN (>=60 (CALC)); GFR OTHER RACES > 60 ML/MIN (>=60 (CALC)); LIPASE 13 u/l (23-300); POTASSIUM 3.7 mmol/l (3.5-5.1); SODIUM 138 mmol/l (137-146); TOTAL PROTEIN 7.8 g/dL (6.3-8.2)
[2021-12-16 23:01] VITALS: BP 167/77
[2021-12-16 23:12] LABS: BILIRUBIN, TOTAL 2.2 mg/dL (0.0-1.4); SGOT/AST 36 u/l (19-48)
[2021-12-17 00:16] VITALS: BP 142/62
[2021-12-17 00:21] VITALS: BP 151/68
[2021-12-17 00:31] VITALS: BP 150/66
[2021-12-17 00:50] VITALS: BP 150/66
== END 2021-12-17 01:05 | disposition short-term general hospital (02) ==
LOC: ED 22:16
PROVIDERS: Internal Medicine
DX: R07.9 Chest pain, unspecified (principal); I11.0 Hypertensive heart disease with heart failure; I50.9 Heart failure, unspecified; I25.10 Atherosclerotic heart disease of native coronary artery without angina pectoris; E11.51 Type 2 diabetes mellitus with diabetic peripheral angiopathy without gangrene; I25.2 Old myocardial infarction; Z95.1 Presence of aortocoronary bypass graft; Z95.5 Presence of coronary angioplasty implant and graft; Z79.4 Long term (current) use of insulin; Z20.822 Contact with and (suspected) exposure to COVID-19

== ENCOUNTER 2022-03-29 17:04 | Emergency (ER) | payer MEDICARE, BC ==
[~2022-03-29] VITALS: Ht 180.3 cm; Wt 102.5 kg
[2022-03-29] VITALS (10 sets, daily range): BP systolic 72–139; BP diastolic 43–116
[2022-03-29 17:56] LABS: BASO% 0.5 % (0-3); IMMATURE GRANULOCYTES 0.5 % (0.0-5.0); LYMPH% 20.8 % (15-41); MEAN CORPUSCULAR HGB 29.4 pG CALC (26.0-32.0); MEAN CORPUSCULAR HGB CONC 33.1 g/dL CAL (32.0-36.0); MONO% 13.6 % (2-13); NEUT# 4.1 thou/uL (1.82-7.42); NEUT% 62.6 % (42-76); RED BLOOD COUNT 3.94 mill/uL (4.70-6.10); RED CELL DISTRI WIDTH 17.2 % (11.5-15.5)
[2022-03-29 17:57] LABS: HEMOGLOBIN 11.6 g/dl (14.0-18.0); MEAN CELL VOLUME 88.8 fL CALC (80.0-100.0)
[2022-03-29 18:13] LABS: ALBUMIN 4.1 g/dL (3.2-5.0); ALKALINE PHOSPHATASE 90 u/l (38-126); ANION GAP 14 (6-22 (CALC)); BILIRUBIN, TOTAL 2.4 mg/dL (0.0-1.4); BUN 29 mg/dL (8-23); CARBON DIOXIDE 24 mmol/l (22-30); CHLORIDE 104 mmol/l (95-108); POTASSIUM 3.9 mmol/l (3.5-5.1); SGOT/AST 54 u/l (19-48); SODIUM 139 mmol/l (137-146); TOTAL PROTEIN 7.7 g/dL (6.3-8.2)
[2022-03-29 18:16] LABS: BUN/CREATININE RATIO 12 (12-20 (CALC)); CREATININE 2.4 mg/dL (0.7-1.3); GFR FOR AFR.AMER. 32 ML/MIN (>=60 (CALC)); GFR OTHER RACES 27 ML/MIN (>=60 (CALC))
[2022-03-29] MEDS ORDERED: IMODIUM2 MG PO (19:49)
[2022-03-29] MEDS ORDERED: ONDANSETRON4 MG PO (19:49)
== END 2022-03-29 22:57 | disposition home or self-care (01) ==
LOC: ED 17:04
PROVIDERS: Family Medicine
DX: U07.1 COVID-19 (principal); N17.9 Acute kidney failure, unspecified; E86.0 Dehydration; I10 Essential (primary) hypertension; E11.51 Type 2 diabetes mellitus with diabetic peripheral angiopathy without gangrene; I25.2 Old myocardial infarction; Z95.1 Presence of aortocoronary bypass graft; Z95.5 Presence of coronary angioplasty implant and graft; Z95.0 Presence of cardiac pacemaker; Z79.4 Long term (current) use of insulin

== ENCOUNTER 2022-10-02 23:11 | Observation (INO) | payer MEDICARE, BC ==
[~2022-10-02] VITALS: Ht 180.3 cm; Wt 94.0 kg
[~2022-10-02 23:11] MED LIST changes: +IMODIUM2 MG PO; +ONDANSETRON4 MG PO; -TRESIBA FL200 UNIT/M IJ
[2022-10-02 23:24] VITALS: BP 148/67
[2022-10-02 23:30] VITALS: BP 129/62
[2022-10-02] MEDS ORDERED: SPIRONOLACT25 MG PO (23:41)
[2022-10-02] MEDS ORDERED: FUROSEMIDE20 MG PO (23:42)
[2022-10-02] MEDS ORDERED: PROTONIX40 M2 PO (23:44)
[2022-10-02] MEDS ORDERED: FERROUS SULF325 M3 PO (23:45)
[2022-10-02] MEDS ORDERED: CARVEDILOL6.25 MG PO (23:46)
[2022-10-02] MEDS ORDERED: OZEMPIC2 MG SC (23:48)
[2022-10-03] VITALS (20 sets, daily range): BP systolic 111–174; BP diastolic 54–110
[2022-10-03 00:28] LABS: BASO% 0.4 % (0-3); EOS% 2.1 % (0-8); HEMATOCRIT 37.9 % (39.0-50.0); HEMOGLOBIN 12.3 g/dl (14.0-18.0); IMMATURE GRANULOCYTES 0.3 % (0.0-5.0); MEAN CELL VOLUME 92.7 fL CALC (80.0-100.0); MEAN CORPUSCULAR HGB 30.1 pG CALC (26.0-32.0); MEAN CORPUSCULAR HGB CONC 32.5 g/dL CAL (32.0-36.0); MONO% 8.3 % (2-13); NEUT# 7.19 thou/uL (1.82-7.42); NEUT% 69.9 % (42-76); RED BLOOD COUNT 4.09 mill/uL (4.70-6.10); RED CELL DISTRI WIDTH 13.8 % (11.5-15.5)
[2022-10-03 00:40] LABS: ALKALINE PHOSPHATASE 81 u/l (38-126); AMYLASE 34 u/l (30-110); BILIRUBIN, TOTAL 1.3 mg/dL (0.2-1.3); CHLORIDE 109 mmol/l (95-108); LIPASE 40 u/l (23-300); POTASSIUM 4.5 mmol/l (3.5-5.1); SGOT/AST 22 u/l (19-48); SODIUM 139 mmol/l (137-146); TOTAL PROTEIN 6.9 g/dL (6.3-8.2)
[2022-10-03 00:41] LABS: INTERNATIONAL NORMALIZED RATIO 1.1 RATIO (0.7-1.3)
[2022-10-03 00:43] LABS: ANION GAP 19 (6-22 (CALC)); BUN 47 mg/dL (8-23); BUN/CREATININE RATIO 17 (12-20 (CALC)); CARBON DIOXIDE 16 mmol/l (22-30); CREATININE 2.8 mg/dL (0.7-1.3); GFR FOR AFR.AMER. 27 ML/MIN (>=60 (CALC)); GFR OTHER RACES 22 ML/MIN (>=60 (CALC))
[2022-10-03 02:35] LABS: URINE BILIRUBIN - DIPSTICK NEGATIVE (NEGATIVE); URINE BLOOD DIPSTICK NEGATIVE (NEGATIVE); URINE COLOR YELLOW; URINE GLUCOSE - DIPSTICK NEGATIVE (NEGATIVE); URINE KETONE NEGATIVE (NEGATIVE); URINE LEUK ESTERASE NEGATIVE (NEGATIVE); URINE PH 5.5 (4.5-8.0); URINE PROTEIN - DIPSTICK NEGATIVE (NEG-TRACE); URINE UROBILINOGEN - DIPSTICK 0.2 E.U./dL (0.2)
[2022-10-03 02:42] LABS: URINE NITRITE - DIPSTICK NEGATIVE (Negative)
[2022-10-04 04:53] VITALS: BP 137/60
[2022-10-04 05:15] VITALS: BP 137/60
[2022-10-04 05:22] LABS: HEMATOCRIT 40.2 % (39.0-50.0); HEMOGLOBIN 12.3 g/dl (14.0-18.0); MEAN CELL VOLUME 96.6 fL CALC (80.0-100.0); MEAN CORPUSCULAR HGB 29.6 pG CALC (26.0-32.0); MEAN CORPUSCULAR HGB CONC 30.6 g/dL CAL (32.0-36.0); RED BLOOD COUNT 4.16 mill/uL (4.70-6.10); RED CELL DISTRI WIDTH 13.9 % (11.5-15.5)
[2022-10-04 05:42] LABS: ALBUMIN 3.7 g/dL (3.2-5.0); BILIRUBIN, TOTAL 1.9 mg/dL (0.2-1.3); CREATININE 1.6 mg/dL (0.7-1.3); POTASSIUM 4.8 mmol/l (3.5-5.1); TOTAL PROTEIN 6.4 g/dL (6.3-8.2)
[2022-10-04 06:26] VITALS: BP 117/61
[2022-10-04 09:31] VITALS: BP 112/62
[2022-10-04 10:10] VITALS: BP 116/55
== END 2022-10-04 13:54 | disposition home or self-care (01) ==
LOC: ED 23:11 → ED-I 10-03 02:47 → ED 10-03 03:03 → MS2 10-03 03:03
PROVIDERS: Emergency Medicine; ADMIT Internal Medicine; ATTEND Internal Medicine
DX: A04.0 Enteropathogenic Escherichia coli infection (principal); E86.0 Dehydration; N17.9 Acute kidney failure, unspecified; I13.0 Hypertensive heart and chronic kidney disease with heart failure and stage 1 through stage 4 chronic kidney disease, or unspecified chronic kidney disease; I50.9 Heart failure, unspecified; E11.22 Type 2 diabetes mellitus with diabetic chronic kidney disease; N18.9 Chronic kidney disease, unspecified; I48.0 Paroxysmal atrial fibrillation; I25.10 Atherosclerotic heart disease of native coronary artery without angina pectoris; E11.51 Type 2 diabetes mellitus with diabetic peripheral angiopathy without gangrene; E11.319 Type 2 diabetes mellitus with unspecified diabetic retinopathy without macular edema; E78.5 Hyperlipidemia, unspecified; I25.2 Old myocardial infarction; Z95.1 Presence of aortocoronary bypass graft; Z95.5 Presence of coronary angioplasty implant and graft; Z86.14 Personal history of Methicillin resistant Staphylococcus aureus infection; Z79.4 Long term (current) use of insulin; Z95.818 Presence of other cardiac implants and grafts; Z79.85 Long-term (current) use of injectable non-insulin antidiabetic drugs; Z98.62 Peripheral vascular angioplasty status; Z95.810 Presence of automatic (implantable) cardiac defibrillator; Z87.891 Personal history of nicotine dependence; Z89.421 Acquired absence of other right toe(s)
CPT/HCPCS: J1956

== ENCOUNTER 2023-11-23 08:49 | Day surgery (SDC) | payer MEDICARE, BC ==
[~2023-11-23] VITALS: Ht 180.3 cm; Wt 93.9 kg
[~2023-11-23 08:49] MED LIST changes: +DORZOLAMIDE HCL/1 ML OS; +FERROUS SULF325 M3 PO; +GABAPENTIN300 M2 PO; +METFORMIN500 M2 PO; +OZEMPIC2 MG; +OZEMPIC2 MG SC; +PROTONIX40 M2 PO; +SPIRONOLACT25 MG PO
[2023-11-23] MEDS ORDERED: SODIUM CHLORIDE 0.9% 1,000 ML IV ONE (08:55)
[2023-11-23] MEDS ORDERED: FAMOTIDINE 10MG/ML 2ML SDV IV ONE (08:55)
[2023-11-23 10:23] VITALS: BP 123/60
[2023-11-23] MEDS ORDERED: GLYCOPYRROLATE 0.2 MG/ML IV ONE (16:27)
[2023-11-23] MEDS ORDERED: PROPOFOL 200 MG/20 ML VIAL IV ONE (16:27)
[2023-11-23] MEDS ORDERED: LIDOCAINE HCL 2% 2ML SDV IV ONE (16:27)
== END 2023-11-23 10:40 | disposition home or self-care (01) ==
LOC: ENDO 08:49
PROVIDERS: ATTEND Internal Medicine Gastroenterology
PROC: 0DB48ZX Excision of Esophagogastric Junction, Via Natural or Artificial Opening Endoscopic, Diagnostic (ICD-10-PCS; principal; 2023-11-23)
PROC: 0DB78ZX Excision of Stomach, Pylorus, Via Natural or Artificial Opening Endoscopic, Diagnostic (ICD-10-PCS; 2023-11-23)
DX: K21.9 Gastro-esophageal reflux disease without esophagitis (principal); K31.89 Other diseases of stomach and duodenum; K58.2 Mixed irritable bowel syndrome; K29.70 Gastritis, unspecified, without bleeding; T18.2XXA Foreign body in stomach, initial encounter; I10 Essential (primary) hypertension; E11.9 Type 2 diabetes mellitus without complications; I48.0 Paroxysmal atrial fibrillation; I25.2 Old myocardial infarction; W44.F3XA Food entering into or through a natural orifice, initial encounter; Z95.1 Presence of aortocoronary bypass graft; Z95.810 Presence of automatic (implantable) cardiac defibrillator; Z79.4 Long term (current) use of insulin; Z86.010 Personal history of colon polyps; Z79.84 Long term (current) use of oral hypoglycemic drugs; Z95.5 Presence of coronary angioplasty implant and graft

== ENCOUNTER 2023-12-28 11:47 | Observation (INO) | payer MEDICARE, BC ==
[~2023-12-28] VITALS: Ht 180.3 cm; Wt 93.8 kg
[2023-12-28] VITALS (24 sets, daily range): BP systolic 111–184; BP diastolic 54–82
--- NOTE | 2023-12-28 11:50 | NUR ---
PT TO ER ROOM 10 VIA WHEELCHAIR.
--- NOTE | 2023-12-28 12:00 | NUR ---
PT IN BED, PT APPEARS ANXIOUS, PT STATED THAT HE IS NOT ABLE TO COLLECT A UNRINE SAMPLE AT THIS TIME, REFUSING A STRAIGHT CATH, PTS AT SIDE, PT STATING "I FUCKED UP" "I CANT BE HERE" PROVIDER AT BEDSIDE, PT NOT ELABORATING ON WHAT IS WRONG OR WHY HE FEELS LIKE HE MESSED UP.
[2023-12-28 12:12] LABS: BASO% 0.7 % (0-3); EOS% 3.1 % (0-8); HEMATOCRIT 37.5 % (39.0-50.0); HEMOGLOBIN 11.8 g/dl (14.0-18.0); IMMATURE GRANULOCYTES 0.4 % (0.0-5.0); LYMPH% 17.2 % (15-41); MEAN CELL VOLUME 96.4 fL CALC (80.0-100.0); MEAN CORPUSCULAR HGB 30.3 pG CALC (26.0-32.0); MEAN CORPUSCULAR HGB CONC 31.5 g/dL CAL (32.0-36.0); MONO% 9.2 % (2-13); NEUT# 7.88 thou/uL (1.82-7.42); NEUT% 69.4 % (42-76); RED BLOOD COUNT 3.89 mill/uL (4.70-6.10); RED CELL DISTRI WIDTH 13.3 % (11.5-15.5)
--- NOTE | 2023-12-28 12:30 | NUR ---
PT RESTING IN BED, VSS,CALL LIGHT WITHIN REACH, PTS AT BEDSIDE, PT DENIES ANY NEEDS AT THIS TIME, URINAL LEFT AT BEDSIDE
[2023-12-28 12:32] LABS: ALKALINE PHOSPHATASE 80 u/l (38-126); ANION GAP 10 (6-22 (CALC)); CARBON DIOXIDE 25 mmol/l (22-30); CHLORIDE 107 mmol/l (95-108); CREATININE 1.4 mg/dL (0.7-1.3); ESTIMATED GFR 53 ML/MIN (>=90 (CALC)); POTASSIUM 4.6 mmol/l (3.5-5.1); SGOT/AST 27 u/l (19-48); SODIUM 137 mmol/l (137-146); TOTAL PROTEIN 7.2 g/dL (6.3-8.2)
[2023-12-28 12:33] LABS: ALBUMIN 4.2 g/dL (3.2-5.0); BILIRUBIN, TOTAL 1.8 mg/dL (0.2-1.3); BUN 20 mg/dL (8-23); BUN/CREATININE RATIO 14 (12-20 (CALC))
--- NOTE | 2023-12-28 14:12 | NUR ---
BLADDER SCANNER PERFORMED ON PT. 389ML MEASURED IN BLADDER.
[2023-12-28 14:49] LABS: URINE BILIRUBIN - DIPSTICK Negative (NEGATIVE); URINE BLOOD DIPSTICK Negative (NEGATIVE); URINE COLOR Yellow; URINE GLUCOSE - DIPSTICK Negative (NEGATIVE); URINE KETONE Negative (NEGATIVE); URINE LEUK ESTERASE Negative (NEGATIVE); URINE NITRITE - DIPSTICK Negative (Negative); URINE PROTEIN - DIPSTICK Negative (NEG-TRACE); URINE UROBILINOGEN - DIPSTICK 0.2 E.U./dL (0.2)
[2023-12-28] MEDS ORDERED: MAGNESIUM HYDROXIDE 30 ML UDC PO PRN (14:50)
[2023-12-28] MEDS ORDERED: ACETAMINOPHEN 325 MG/TAB PO PRN (14:50)
--- NOTE | 2023-12-28 15:16 | NUR ---
AT BEDSIDE, PT UPDATED ON THE PLAN OF CARE
[2023-12-28] MEDS ORDERED: DEXTROSE 250 ML IV PRN (15:40)
--- NOTE | 2023-12-28 16:09 | NUR ---
REPORT CALLED TO MS, SPOKE WITH CHRISTOPHER, GAVE PT INFO, PT TO BE TRANSPORTED TO BED 273 ON TELE
--- NOTE | 2023-12-28 16:22 | NUR ---
PATIENT ADMITTED FROM ED TO ROOM 273. PATIENT A&OX4 AND ABLE TO MAKE NEEDS KNOWN. PATIENT LOWER EXTREMITIES FLAKEY, DISCOLORATION AND SOME SCABBED OVER AREAS. PATIENT HAS OLD SURGICAL SCARS IN UPPER RIGHT CHEST AREA AND LOWER BACK. PATIENT BILATERAL GREATER TOES AMPUTATED. PATIENT IS ORIENTED TO ROOM, CALL LIGHT, AND SURROUDINGS. PATIENT DENIES ANY NEEDS AT THIS TIME. BED AT LOWESET LEVEL, TOP 2 SIDERAILS UP, CALL LIGHT WITHIN REACH. WILL CONTINUE TO MONITOR.
[2023-12-28] MEDS ORDERED: INSULIN LISPRO 100 UNITS/ML ML SC SCH (17:00)
--- NOTE | 2023-12-28 20:00 | NUR ---
[facility] CHRISTOPHER ANDREWS. PT NOTED SITTING UP ON SIDE OF BED, RM AIR. PT IS A/OX4, STATES "SLIGHTLY HARD OF HEARING" W/ NO HEARING AIDS. PT DENIES ANY N/V/P AT THIS TIME. NURSING ASSESSMENT COMPLETED AND IV SITE APPEARS HEALTHY AND INTACT. EDUCATED PT ON PLAN OF CARE AND MED SCHEDULE. PT DOES HAVE AT HOME MEDICATIONS IN ROOM AT THIS TIME, DID GO THROUGH MEDICATIONS WITH PT, NO NARCOTICS OR CONTROLLED SUBSTANCES. PT INFORMED ON HOSPITAL POLICY IN REGARD TO AT HOME MEDICATIONS BROUGHT IN. PT REFUSED TO LET MEDS BE TAKEN INTO MED ROOM STATING "LAST TIME I WAS HERE I DIDNT GET ANY OF MY STUFF BACK." DID TRY COMPROMISING WITH PT TO LET THEM SIT IN MED ROOM OVER NIGHT AND HAVE VISITOR MANAGER FLIGHT OPERATIONS TMRW. PT STILL REFUSED. CALL LIGHT WITHIN REACH AND SAFETY PRECAUTIONS IN PLACE.
--- NOTE | 2023-12-28 20:21 | NUR ---
12/28/2023 @1999 pt glucose was 166.
[2023-12-28] MEDS ORDERED: GABAPENTIN 300 MG/CAP PO SCH (21:00)
[2023-12-28] MEDS ORDERED: Heparin SODIUM (Porcine) 5,000 UNITS/ML SDV SC SCH (22:00)
--- NOTE | 2023-12-28 23:58 | NUR ---
PT IS LAYING IN BED ON LEFT SIDE, SLEEPING AT THIS TIME. VSS. NO S/S OF DISTRESS. CALL LIGHT WITHIN REACH AND SAFETY PRECAUTIONS IN PLACE.
[2023-12-29] VITALS: BP 138/71
--- NOTE | 2023-12-29 00:58 | NUR ---
REPORT GIVEN TO RUDDY ANDREWS
--- NOTE | 2023-12-29 02:09 | NUR ---
PATIENT IN SEMI-FOWLERS POSITION IN BED AT THIS TIME WITH EYES CLOSED. RESPS ARE EVEN AND UNLABORED. TELE MONITOR IN PLACE. SALINE LOCK TO RAC INTACT. CALL LIGHT IN REACH, WILL CONT TO MONITOR.
[2023-12-29 04:00] VITALS: BP 130/54
[2023-12-29 05:53] LABS: BASO% 0.6 % (0-3); EOS% 4.6 % (0-8); HEMATOCRIT 36.8 % (39.0-50.0); HEMOGLOBIN 11.6 g/dl (14.0-18.0); IMMATURE GRANULOCYTES 0.4 % (0.0-5.0); LYMPH% 19.2 % (15-41); MEAN CELL VOLUME 96.1 fL CALC (80.0-100.0); MEAN CORPUSCULAR HGB 30.3 pG CALC (26.0-32.0); MEAN CORPUSCULAR HGB CONC 31.5 g/dL CAL (32.0-36.0); MONO% 11.1 % (2-13); NEUT# 6.34 thou/uL (1.82-7.42); NEUT% 64.1 % (42-76); RED BLOOD COUNT 3.83 mill/uL (4.70-6.10); RED CELL DISTRI WIDTH 13.4 % (11.5-15.5)
--- NOTE | 2023-12-29 05:59 | NUR ---
PATIENT RESTING IN BED-REFUSING HEPARIN SQ AT THIS TIME. TELE MONITOR IN PLACE AND READING PACED 69. SALINE LOCK TO RAC INTACT. CALL LIGHT IN REACH, WILL CONT TO MONITOR.
[2023-12-29 06:08] LABS: ALBUMIN 3.6 g/dL (3.2-5.0); BILIRUBIN, TOTAL 1.6 mg/dL (0.2-1.3); CREATININE 1.4 mg/dL (0.7-1.3); MAGNESIUM 1.8 mg/dL (1.6-2.3); POTASSIUM 4.2 mmol/l (3.5-5.1); TOTAL PROTEIN 6.3 g/dL (6.3-8.2)
[2023-12-29 06:27] VITALS: BP 114/58
[2023-12-29 06:56] VITALS: BP 114/58
--- NOTE | 2023-12-29 07:00 | NUR ---
SHIFT CHANGE REPORT, PT SLEEPING SOUNDLY IN SUPINE POSITION, BREATHING EVEN AND NON-LABORED, NO VISIBLE SIGN DISCOMFORT, TELE MOITOR IN PLACE, CALL QUIROGA IN REACH AND BED LOCKED IN LOWEST POSITION.
--- NOTE | 2023-12-29 08:30 | NUR ---
AWAKE ALERT AND ORIENTED AMBULATING IN ROOM, ATE MEAL, PLEASANTLY CONVERSANT, NO C/O DISCOMFORT.
--- NOTE | 2023-12-29 08:54 | NUR ---
CONTACTED DR BELTRÁN'S OFFICE IN REFERENCE TO A CARDIOLOGY CONSULT. I SPOKE WITH MIYA AT [id number] HRS.
[2023-12-29] MEDS ORDERED: ASPIRIN 81 MG/TAB PO SCH (09:00)
[2023-12-29] MEDS ORDERED: CLOPIDOGREL BISULFATE 75 MG/TAB TAB PO SCH (09:00)
[2023-12-29] MEDS ORDERED: AMIODARONE 200 MG/TAB PO SCH (09:00)
[2023-12-29 10:36] VITALS: BP 91/48
[2023-12-29 10:46] VITALS: BP 91/48
[2023-12-29] MEDS ORDERED: KAPSPARGO SPRIN50 MG PO (12:31)
[2023-12-29] MEDS ORDERED: FUROSEMIDE20 MG PO (12:32)
== END 2023-12-29 16:22 | disposition home or self-care (01) ==
LOC: ED 11:47 → ED-I 14:00 → ED 14:46 → MS2 14:47
PROVIDERS: Family Medicine; ADMIT Student in an Organized Health Care Education/Training Program; ATTEND Student in an Organized Health Care Education/Training Program
DX: R55 Syncope and collapse (principal); N17.9 Acute kidney failure, unspecified; I13.0 Hypertensive heart and chronic kidney disease with heart failure and stage 1 through stage 4 chronic kidney disease, or unspecified chronic kidney disease; E11.22 Type 2 diabetes mellitus with diabetic chronic kidney disease; I50.22 Chronic systolic (congestive) heart failure; N18.9 Chronic kidney disease, unspecified; E11.51 Type 2 diabetes mellitus with diabetic peripheral angiopathy without gangrene; E11.319 Type 2 diabetes mellitus with unspecified diabetic retinopathy without macular edema; I44.0 Atrioventricular block, first degree; I49.3 Ventricular premature depolarization; I25.5 Ischemic cardiomyopathy; I48.0 Paroxysmal atrial fibrillation; E78.5 Hyperlipidemia, unspecified; I25.2 Old myocardial infarction; R30.0 Dysuria; Z95.1 Presence of aortocoronary bypass graft; Z95.818 Presence of other cardiac implants and grafts; Z95.820 Peripheral vascular angioplasty status with implants and grafts; Z89.412 Acquired absence of left great toe; Z89.411 Acquired absence of right great toe; Z79.84 Long term (current) use of oral hypoglycemic drugs; Z79.4 Long term (current) use of insulin; Z95.810 Presence of automatic (implantable) cardiac defibrillator; Z87.891 Personal history of nicotine dependence; Z20.822 Contact with and (suspected) exposure to COVID-19
CPT/HCPCS: G0378

== ENCOUNTER 2024-01-04 19:22 | Observation (INO) | payer MEDICARE, BC ==
[~2024-01-04] VITALS: Ht 180.3 cm; Wt 96.4 kg
[~2024-01-04 19:22] MED LIST changes: +KAPSPARGO SPRIN50 MG PO
[2024-01-04 19:59] VITALS: BP 140/62
[2024-01-04 20:00] VITALS: BP 123/61
[2024-01-04] MEDS ORDERED: Pantoprazole Sodium 40 MG VIAL (Protonix) IV STA (20:11)
[2024-01-04] MEDS ORDERED: ONDANSETRON HCl 4 MG/2 ML SDV IV STA (20:11)
[2024-01-04] MEDS ORDERED: IPRATROPIUM-Albuterol 0.5MG-2.5MG/3 ML NEB ONE (20:15)
[2024-01-04] MEDS ORDERED: methylPREDNISolone Sod Succ 40 MG/ML SDV IV ONE (20:20)
[2024-01-04 20:46] LABS: BASO% 0.3 % (0-3); EOS% 0.6 % (0-8); IMMATURE GRANULOCYTES 0.3 % (0.0-5.0); LYMPH% 4.8 % (15-41); MEAN CELL VOLUME 94.2 fL CALC (80.0-100.0); MEAN CORPUSCULAR HGB 29.9 pG CALC (26.0-32.0); MEAN CORPUSCULAR HGB CONC 31.7 g/dL CAL (32.0-36.0); MONO% 7.4 % (2-13); NEUT# 14.83 thou/uL (1.82-7.42); NEUT% 86.6 % (42-76); RED BLOOD COUNT 4.69 mill/uL (4.70-6.10); RED CELL DISTRI WIDTH 13.3 % (11.5-15.5)
[2024-01-04 20:47] LABS: HEMATOCRIT 44.2 % (39.0-50.0)
[2024-01-04 20:56] LABS: BUN 38 mg/dL (8-23); BUN/CREATININE RATIO 17 (12-20 (CALC)); CHLORIDE 104 mmol/l (95-108); CREATININE 2.3 mg/dL (0.7-1.3); ESTIMATED GFR 29 ML/MIN (>=90 (CALC)); LIPASE 33 u/l (23-300); SGOT/AST 31 u/l (19-48); SODIUM 137 mmol/l (137-146)
[2024-01-04 21:00] LABS: ALBUMIN 5.2 g/dL (3.2-5.0); ALKALINE PHOSPHATASE 119 u/l (38-126); ANION GAP 20 (6-22 (CALC)); BILIRUBIN, TOTAL 2.8 mg/dL (0.2-1.3); CARBON DIOXIDE 19 mmol/l (22-30); POTASSIUM 5.5 mmol/l (3.5-5.1); TOTAL PROTEIN 8.6 g/dL (6.3-8.2)
[2024-01-04] MEDS ORDERED: DOXYCYCLINE HYCLATE 100 MG in SODIUM CHLORIDE 0.9% 100 ML IV ONE (21:00)
[2024-01-04 21:30] VITALS: BP 119/56
[2024-01-04] MEDS ORDERED: ACETAMINOPHEN 325 MG/TAB PO PRN (22:45)
[2024-01-04] MEDS ORDERED: MAGNESIUM HYDROXIDE 30 ML UDC PO PRN (22:45)
[2024-01-04] MEDS ORDERED: SODIUM CHLORIDE 0.9% 1,000 ML IV PRN (22:45)
[2024-01-04 22:46] VITALS: BP 109/49
[2024-01-04] MEDS ORDERED: DOCUSATE CALCI240 MG PO (22:46)
[2024-01-04 23:00] VITALS: BP 105/49
[2024-01-05] VITALS (8 sets, daily range): BP systolic 111–148; BP diastolic 39–61
[2024-01-05] MEDS ORDERED: ONDANSETRON HCl 4 MG/2 ML SDV IV SCH
[2024-01-05] MEDS ORDERED: DEXTROSE 250 ML IV PRN (07:45)
[2024-01-05 08:19] LABS: HEMOGLOBIN 12.6 g/dl (14.0-18.0); IMMATURE GRANULOCYTES 0.4 % (0.0-5.0); LYMPH% 3.9 % (15-41); MEAN CELL VOLUME 94.8 fL CALC (80.0-100.0); MEAN CORPUSCULAR HGB 29.9 pG CALC (26.0-32.0); MEAN CORPUSCULAR HGB CONC 31.5 g/dL CAL (32.0-36.0); MONO% 0.6 % (2-13); NEUT# 13.55 thou/uL (1.82-7.42); NEUT% 95.1 % (42-76); RED BLOOD COUNT 4.22 mill/uL (4.70-6.10); RED CELL DISTRI WIDTH 13.6 % (11.5-15.5)
[2024-01-05 08:36] LABS: ALBUMIN 4.4 g/dL (3.2-5.0); BILIRUBIN, TOTAL 2.2 mg/dL (0.2-1.3); CREATININE 2.6 mg/dL (0.7-1.3); TOTAL PROTEIN 7.4 g/dL (6.3-8.2)
[2024-01-05 08:41] LABS: POTASSIUM 5.2 mmol/l (3.5-5.1)
[2024-01-05] MEDS ORDERED: ASPIRIN 81 MG/TAB PO SCH (11:00)
[2024-01-05] MEDS ORDERED: INSULIN LISPRO 100 UNITS/ML ML SC SCH (11:00)
[2024-01-05] MEDS ORDERED: SODIUM ZIRCONIUM CYCLOSILICATE 10 GM PAK PO SCH (11:00)
[2024-01-05] MEDS ORDERED: METOPROLOL SUCCINATE 50 MG/TAB PO SCH (11:00)
[2024-01-05] MEDS ORDERED: INSULIN DETEMIR 100 UNITS/ML SC SCH (11:00)
[2024-01-05] MEDS ORDERED: ALBUTEROL SULFATE 8 GM INH IN SCH (11:00)
[2024-01-05 11:08] LABS: URINE BILIRUBIN - DIPSTICK Negative (NEGATIVE); URINE BLOOD DIPSTICK Negative (NEGATIVE); URINE GLUCOSE - DIPSTICK Negative (NEGATIVE); URINE KETONE Trace mg/dL (NEGATIVE); URINE LEUK ESTERASE Trace (NEGATIVE); URINE NITRITE - DIPSTICK Negative (Negative); URINE PROTEIN - DIPSTICK Negative (NEG-TRACE); URINE SPECIFIC GRAVITY >=1.030; URINE UROBILINOGEN - DIPSTICK 0.2 E.U./dL (0.2)
[2024-01-05 11:13] LABS: URINE COLOR Yellow
[2024-01-05] MEDS ORDERED: ENOXAPARIN SODIUM 40 MG/0.4 ML SYR SC SCH (21:00)
[2024-01-05] MEDS ORDERED: ATORVASTATIN CALCIUM 40 MG/TAB PO SCH (21:00)
[2024-01-06 00:02] VITALS: BP 103/50
[2024-01-06 04:07] VITALS: BP 137/60
[2024-01-06 05:00] LABS: BASO% 0.1 % (0-3); EOS% 0.1 % (0-8); HEMATOCRIT 34.4 % (39.0-50.0); HEMOGLOBIN 11.3 g/dl (14.0-18.0); IMMATURE GRANULOCYTES 0.6 % (0.0-5.0); LYMPH% 5.8 % (15-41); MEAN CORPUSCULAR HGB 30.9 pG CALC (26.0-32.0); MEAN CORPUSCULAR HGB CONC 32.8 g/dL CAL (32.0-36.0); MONO% 5.5 % (2-13); NEUT# 15.56 thou/uL (1.82-7.42); NEUT% 87.9 % (42-76); RED BLOOD COUNT 3.66 mill/uL (4.70-6.10); RED CELL DISTRI WIDTH 13.5 % (11.5-15.5)
[2024-01-06 05:18] LABS: ALBUMIN 3.8 g/dL (3.2-5.0); BILIRUBIN, TOTAL 1.5 mg/dL (0.2-1.3); CREATININE 2.3 mg/dL (0.7-1.3); MAGNESIUM 1.9 mg/dL (1.6-2.3); POTASSIUM 4.8 mmol/l (3.5-5.1); TOTAL PROTEIN 6.5 g/dL (6.3-8.2)
[2024-01-06 07:26] VITALS: BP 125/55
[2024-01-06 10:58] VITALS: BP 112/41
[2024-01-06 15:08] VITALS: BP 119/59
[2024-01-06] MEDS ORDERED: ONDANSETRON HCl 4 MG/2 ML SDV IV PRN (18:20)
[2024-01-06 18:44] VITALS: BP 142/61
[2024-01-07] VITALS: BP 144/61
[2024-01-07 00:24] VITALS: BP 144/61
[2024-01-07 03:54] VITALS: BP 140/68
[2024-01-07 04:00] VITALS: BP 140/68
[2024-01-07 05:50] LABS: HEMATOCRIT 39.5 % (39.0-50.0); HEMOGLOBIN 12.4 g/dl (14.0-18.0); MEAN CELL VOLUME 97.3 fL CALC (80.0-100.0); MEAN CORPUSCULAR HGB 30.5 pG CALC (26.0-32.0); MEAN CORPUSCULAR HGB CONC 31.4 g/dL CAL (32.0-36.0); RED BLOOD COUNT 4.06 mill/uL (4.70-6.10); RED CELL DISTRI WIDTH 13.6 % (11.5-15.5)
[2024-01-07 06:10] LABS: BILIRUBIN, TOTAL 1.3 mg/dL (0.2-1.3); CREATININE 1.7 mg/dL (0.7-1.3); MAGNESIUM 2.1 mg/dL (1.6-2.3); POTASSIUM 4.7 mmol/l (3.5-5.1); TOTAL PROTEIN 6.9 g/dL (6.3-8.2)
[2024-01-07 06:57] VITALS: BP 166/50
[2024-01-07 08:31] VITALS: BP 166/50
[2024-01-07] MEDS ORDERED: AMOX/K CLAV875 M1 PO (08:47)
== END 2024-01-07 10:36 | disposition home or self-care (01) ==
LOC: ED 19:22 → ED-I 22:23 → ED 22:44 → MS2 22:45
PROVIDERS: Emergency Medicine; Nurse Practitioner Family; ADMIT Internal Medicine; ATTEND Internal Medicine
DX: K52.9 Noninfective gastroenteritis and colitis, unspecified (principal); I13.0 Hypertensive heart and chronic kidney disease with heart failure and stage 1 through stage 4 chronic kidney disease, or unspecified chronic kidney disease; I50.9 Heart failure, unspecified; N17.9 Acute kidney failure, unspecified; E11.22 Type 2 diabetes mellitus with diabetic chronic kidney disease; N18.30 Chronic kidney disease, stage 3 unspecified; E11.51 Type 2 diabetes mellitus with diabetic peripheral angiopathy without gangrene; I25.10 Atherosclerotic heart disease of native coronary artery without angina pectoris; I48.0 Paroxysmal atrial fibrillation; K21.9 Gastro-esophageal reflux disease without esophagitis; I25.5 Ischemic cardiomyopathy; E78.5 Hyperlipidemia, unspecified; I25.2 Old myocardial infarction; Z95.1 Presence of aortocoronary bypass graft; Z95.810 Presence of automatic (implantable) cardiac defibrillator; Z95.5 Presence of coronary angioplasty implant and graft; Z95.818 Presence of other cardiac implants and grafts; Z95.820 Peripheral vascular angioplasty status with implants and grafts; Z89.412 Acquired absence of left great toe; Z89.411 Acquired absence of right great toe; Z79.84 Long term (current) use of oral hypoglycemic drugs; Z79.4 Long term (current) use of insulin; Z87.891 Personal history of nicotine dependence
CPT/HCPCS: G0378; J1650; J1815; J2470

== ENCOUNTER 2024-06-16 14:02 | Inpatient (IN) | payer MEDICARE, BC ==
[~2024-06-16] VITALS: Ht 180.3 cm; Wt 99.2 kg
[2024-06-16] VITALS (46 sets, daily range): BP systolic 97–171; BP diastolic 53–80
[~2024-06-16 14:02] MED LIST changes: +AMOX/K CLAV875 M1 PO; +COSOPT1 ML OS; +DOCUSATE CALCI240 MG PO; -DORZOLAMIDE HCL/1 ML OS
[2024-06-16] MEDS ORDERED: ASPIRIN 81 MG/TAB PO ONE (14:15)
[2024-06-16] MEDS ORDERED: MORPHINE SULFATE 4 MG/ML VIAL IV ONE (14:25)
[2024-06-16] MEDS ORDERED: NITROGLYCERIN 2% OINT UD 1 GM/PAK TD ONE (14:25)
[2024-06-16 14:31] LABS: BASO% 0.8 % (0-3); HEMATOCRIT 34.6 % (39.0-50.0); HEMOGLOBIN 10.9 g/dl (14.0-18.0); IMMATURE GRANULOCYTES 0.6 % (0.0-5.0); MEAN CELL VOLUME 92.3 fL CALC (80.0-100.0); MEAN CORPUSCULAR HGB 29.1 pG CALC (26.0-32.0); MEAN CORPUSCULAR HGB CONC 31.5 g/dL CAL (32.0-36.0); MONO% 9.2 % (2-13); NEUT# 6.34 thou/uL (1.82-7.42); NEUT% 68.4 % (42-76); RED BLOOD COUNT 3.75 mill/uL (4.70-6.10); RED CELL DISTRI WIDTH 15.3 % (11.5-15.5)
[2024-06-16] MEDS ORDERED: ALDACTONE25 MG PO (14:31)
[2024-06-16] MEDS ORDERED: GABAPENTIN300 M2 (14:32)
[2024-06-16 14:48] LABS: ALBUMIN 3.8 g/dL (3.2-5.0); ALKALINE PHOSPHATASE 86 u/l (38-126); ANION GAP 10 (6-22 (CALC)); BILIRUBIN, TOTAL 1.6 mg/dL (0.2-1.3); BUN 20 mg/dL (8-23); BUN/CREATININE RATIO 20 (12-20 (CALC)); CHLORIDE 112 mmol/l (95-108); ESTIMATED GFR 79 ML/MIN (>=90 (CALC)); LIPASE 18 u/l (23-300); POTASSIUM 4.3 mmol/l (3.5-5.1); SGOT/AST 27 u/l (19-48); SODIUM 139 mmol/l (137-146); TOTAL PROTEIN 6.5 g/dL (6.3-8.2)
[2024-06-16 14:56] LABS: CARBON DIOXIDE 21 mmol/l (22-30)
[2024-06-16] MEDS ORDERED: ACETAMINOPHEN 325 MG/TAB PO PRN (17:20)
[2024-06-16] MEDS ORDERED: TOPROL XL25 MG PO (17:20)
[2024-06-16] MEDS ORDERED: MAGNESIUM HYDROXIDE 30 ML UDC PO PRN (17:20)
[2024-06-16] MEDS ORDERED: AZITHROMYCIN 500 MG in SODIUM CHLORIDE 0.9% 250 ML IV SCH (17:20)
[2024-06-16] MEDS ORDERED: INSULIN GLARGINE 100 UNITS/ML SC SCH (21:00)
[2024-06-16] MEDS ORDERED: INSULIN LISPRO 100 UNITS/ML ML SC SCH (21:00)
[2024-06-16] MEDS ORDERED: GABAPENTIN 300 MG/CAP PO SCH (21:00)
[2024-06-16] MEDS ORDERED: FUROSEMIDE 40 MG/4 ML SDV IV SCH (21:00)
[2024-06-16] MEDS ORDERED: ENOXAPARIN SODIUM 40 MG/0.4 ML SYR SC SCH (21:00)
[2024-06-17 03:24] VITALS: BP 133/67
[2024-06-17 05:26] LABS: BASO% 0.7 % (0-3); EOS% 2.3 % (0-8); HEMATOCRIT 34.9 % (39.0-50.0); HEMOGLOBIN 11.3 g/dl (14.0-18.0); IMMATURE GRANULOCYTES 0.4 % (0.0-5.0); MEAN CELL VOLUME 91.6 fL CALC (80.0-100.0); MEAN CORPUSCULAR HGB 29.7 pG CALC (26.0-32.0); MEAN CORPUSCULAR HGB CONC 32.4 g/dL CAL (32.0-36.0); NEUT# 5.96 thou/uL (1.82-7.42); NEUT% 65.6 % (42-76); RED BLOOD COUNT 3.81 mill/uL (4.70-6.10); RED CELL DISTRI WIDTH 15.2 % (11.5-15.5)
[2024-06-17 05:38] VITALS: BP 144/69
[2024-06-17 05:47] LABS: ALBUMIN 3.9 g/dL (3.2-5.0); BILIRUBIN, TOTAL 1.5 mg/dL (0.2-1.3); CHOLESTEROL HDL RATIO 4.4 (<4.4 (CALC)); CREATININE 1.3 mg/dL (0.7-1.3); TOTAL PROTEIN 6.5 g/dL (6.3-8.2)
[2024-06-17] MEDS ORDERED: SPIRONOLACTONE 25 MG/TAB PO SCH (09:00)
[2024-06-17] MEDS ORDERED: METOPROLOL SUCCINATE 25 MG/TAB-TOPROL XL PO SCH (09:00)
[2024-06-17] MEDS ORDERED: AMIODARONE 200 MG/TAB PO SCH (09:00)
[2024-06-17] MEDS ORDERED: ATORVASTATIN CALCIUM 40 MG/TAB PO SCH (09:00)
[2024-06-17] MEDS ORDERED: CLOPIDOGREL BISULFATE 75 MG/TAB TAB PO SCH (09:00)
[2024-06-17 09:34] VITALS: BP 141/69
[2024-06-17] MEDS ORDERED: NITROGLYCERIN0.4 MG SL (11:01)
[2024-06-17] MEDS ORDERED: DULERA1 AE1 IN (11:02)
[2024-06-17] MEDS ORDERED: MUPIROCIN2 % EX (11:03)
[2024-06-17] MEDS ORDERED: KETOCONAZOLE2 % EX (11:04)
[2024-06-17] MEDS ORDERED: EQ STOOL SOFTE100 MG PO (11:08)
[2024-06-17] MEDS ORDERED: HUMALOG100 UNIT SC (11:10)
[2024-06-17 14:44] VITALS: BP 146/63
[2024-06-17 18:21] VITALS: BP 165/70
[2024-06-17] MEDS ORDERED: AZITHROMYCIN 500 MG in SODIUM CHLORIDE 0.9% 250 ML IV SCH (21:00)
[2024-06-17] MEDS ORDERED: PATIENT' OWN MED 1 EA DOSE SC SCH (21:00)
[2024-06-18] VITALS (8 sets, daily range): BP systolic 126–155; BP diastolic 47–74
[2024-06-18 05:35] LABS: BASO% 0.5 % (0-3); EOS% 2.6 % (0-8); HEMATOCRIT 36.9 % (39.0-50.0); IMMATURE GRANULOCYTES 0.5 % (0.0-5.0); LYMPH% 23.4 % (15-41); MEAN CELL VOLUME 92.3 fL CALC (80.0-100.0); MEAN CORPUSCULAR HGB CONC 32.5 g/dL CAL (32.0-36.0); NEUT# 6.12 thou/uL (1.82-7.42); RED CELL DISTRI WIDTH 15.4 % (11.5-15.5)
[2024-06-18 05:51] LABS: BILIRUBIN, TOTAL 1.5 mg/dL (0.2-1.3); CREATININE 1.4 mg/dL (0.7-1.3); MAGNESIUM 2.1 mg/dL (1.6-2.3); POTASSIUM 4.7 mmol/l (3.5-5.1); TOTAL PROTEIN 6.8 g/dL (6.3-8.2)
[2024-06-18 07:17] LABS: BASO% 0.5 % (0-3); EOS% 2.4 % (0-8); HEMATOCRIT 37.8 % (39.0-50.0); HEMOGLOBIN 12.2 g/dl (14.0-18.0); IMMATURE GRANULOCYTES 0.7 % (0.0-5.0); LYMPH% 19.6 % (15-41); MEAN CELL VOLUME 91.7 fL CALC (80.0-100.0); MEAN CORPUSCULAR HGB 29.6 pG CALC (26.0-32.0); MEAN CORPUSCULAR HGB CONC 32.3 g/dL CAL (32.0-36.0); MONO% 9.5 % (2-13); NEUT# 6.54 thou/uL (1.82-7.42); NEUT% 67.3 % (42-76); RED BLOOD COUNT 4.12 mill/uL (4.70-6.10); RED CELL DISTRI WIDTH 15.3 % (11.5-15.5)
[2024-06-18 07:46] LABS: ALBUMIN 4.1 g/dL (3.2-5.0); ALKALINE PHOSPHATASE 108 u/l (38-126); ANION GAP 11 (6-22 (CALC)); BILIRUBIN, TOTAL 1.5 mg/dL (0.2-1.3); BUN 29 mg/dL (8-23); BUN/CREATININE RATIO 20 (12-20 (CALC)); CALCULATED LDLCHOLESTEROL 109 mg/dL (62-129 (CALC)); CARBON DIOXIDE 27 mmol/l (22-30); CHLORIDE 105 mmol/l (95-108); CHOLESTEROL HDL RATIO 4.8 (<4.4 (CALC)); CREATININE 1.4 mg/dL (0.7-1.3); ESTIMATED GFR 53 ML/MIN (>=90 (CALC)); HDL CHOLESTEROL 38 mg/dL (39.0-59.0); POTASSIUM 4.4 mmol/l (3.5-5.1); SGOT/AST 28 u/l (19-48); SODIUM 138 mmol/l (137-146); TOTAL CHOLESTEROL 181 mg/dl (0-199); TOTAL PROTEIN 7.1 g/dL (6.3-8.2); TOTAL TRIGLYCERIDES 170 mg/dl (0-149); VLDL CHOLESTROL 34 mg/dl (0-38 (CALC))
[2024-06-18 08:03] LABS: PROTHROMBIN TIME 10.7 SECONDS (9.0-12.5)
[2024-06-18] MEDS ORDERED: FUROSEMIDE 20 MG/TAB PO SCH (09:00)
[2024-06-18] MEDS ORDERED: BUMETANIDE 1 MG/4 ML VIAL IV SCH (09:00)
[2024-06-18] MEDS ORDERED: CEFEPIME HYDROCHLORIDE 2 GM in SODIUM CHLORIDE 0.9% 100 ML IV SCH (09:30)
[2024-06-18] MEDS ORDERED: DOXYCYCLINE HYCLATE 100 MG in SODIUM CHLORIDE 0.9% 100 ML IV SCH (10:00)
[2024-06-18] MEDS ORDERED: PATIENT' OWN MED 1 EA DOSE SC SCH (21:00)
[2024-06-18 21:07] LABS: URINE BILIRUBIN - DIPSTICK Negative (NEGATIVE); URINE BLOOD DIPSTICK Negative (NEGATIVE); URINE COLOR Light yellow; URINE GLUCOSE - DIPSTICK Negative (NEGATIVE); URINE KETONE Negative (NEGATIVE); URINE LEUK ESTERASE Negative (NEGATIVE); URINE NITRITE - DIPSTICK Negative (Negative); URINE PROTEIN - DIPSTICK Negative (NEG-TRACE); URINE UROBILINOGEN - DIPSTICK 0.2 E.U./dL (0.2)
[2024-06-19] VITALS (8 sets, daily range): BP systolic 115–159; BP diastolic 45–74
[2024-06-19 05:16] LABS: BASO% 0.5 % (0-3); EOS% 3.4 % (0-8); HEMATOCRIT 36.9 % (39.0-50.0); IMMATURE GRANULOCYTES 0.7 % (0.0-5.0); LYMPH% 20.4 % (15-41); MEAN CELL VOLUME 92.3 fL CALC (80.0-100.0); MEAN CORPUSCULAR HGB CONC 32.5 g/dL CAL (32.0-36.0); MONO% 10.1 % (2-13); NEUT# 6.3 thou/uL (1.82-7.42); NEUT% 64.9 % (42-76); RED CELL DISTRI WIDTH 15.2 % (11.5-15.5)
[2024-06-19 05:25] LABS: ALBUMIN 3.8 g/dL (3.2-5.0); BILIRUBIN, TOTAL 1.4 mg/dL (0.2-1.3); CREATININE 1.6 mg/dL (0.7-1.3); POTASSIUM 4.2 mmol/l (3.5-5.1); TOTAL PROTEIN 6.6 g/dL (6.3-8.2)
[2024-06-19] MEDS ORDERED: SODIUM CHLORIDE 0.9% 250 ML IV ONE (20:56)
[2024-06-20 04:57] LABS: BASO% 0.6 % (0-3); EOS% 3.5 % (0-8); HEMATOCRIT 37.2 % (39.0-50.0); HEMOGLOBIN 11.8 g/dl (14.0-18.0); IMMATURE GRANULOCYTES 1.2 % (0.0-5.0); LYMPH% 20.2 % (15-41); MEAN CELL VOLUME 92.1 fL CALC (80.0-100.0); MEAN CORPUSCULAR HGB 29.2 pG CALC (26.0-32.0); MEAN CORPUSCULAR HGB CONC 31.7 g/dL CAL (32.0-36.0); MONO% 10.7 % (2-13); NEUT# 5.67 thou/uL (1.82-7.42); NEUT% 63.8 % (42-76); RED BLOOD COUNT 4.04 mill/uL (4.70-6.10); RED CELL DISTRI WIDTH 15.1 % (11.5-15.5)
[2024-06-20 05:13] LABS: ALBUMIN 3.9 g/dL (3.2-5.0); BILIRUBIN, TOTAL 1.2 mg/dL (0.2-1.3); CREATININE 1.3 mg/dL (0.7-1.3); MAGNESIUM 2.1 mg/dL (1.6-2.3); POTASSIUM 4.5 mmol/l (3.5-5.1); TOTAL PROTEIN 6.7 g/dL (6.3-8.2)
[2024-06-20 05:36] VITALS: BP 144/52
[2024-06-20 06:53] VITALS: BP 181/64
[2024-06-20 09:37] VITALS: BP 156/61
[2024-06-20] MEDS ORDERED: DOXYCYCLINE100 MG PO (10:48)
[2024-06-20 11:04] VITALS: BP 156/61
== END 2024-06-20 13:33 | disposition home or self-care (01) | DRG 154 ==
LOC: ED 14:02 → ED-I 16:00 → ED 16:49 → MS2 16:50
PROVIDERS: Nurse Practitioner; Nurse Practitioner Family; ADMIT Internal Medicine; ATTEND Internal Medicine
DX: H91.02 Ototoxic hearing loss, left ear (principal); J18.9 Pneumonia, unspecified organism; I13.0 Hypertensive heart and chronic kidney disease with heart failure and stage 1 through stage 4 chronic kidney disease, or unspecified chronic kidney disease; J44.0 Chronic obstructive pulmonary disease with (acute) lower respiratory infection; I50.22 Chronic systolic (congestive) heart failure; N17.9 Acute kidney failure, unspecified; T50.1X5A Adverse effect of loop [high-ceiling] diuretics, initial encounter; T36.3X5A Adverse effect of macrolides, initial encounter; E11.22 Type 2 diabetes mellitus with diabetic chronic kidney disease; N18.9 Chronic kidney disease, unspecified; E11.319 Type 2 diabetes mellitus with unspecified diabetic retinopathy without macular edema; E11.51 Type 2 diabetes mellitus with diabetic peripheral angiopathy without gangrene; I25.5 Ischemic cardiomyopathy; I48.0 Paroxysmal atrial fibrillation; G93.89 Other specified disorders of brain; H54.62 Unqualified visual loss, left eye, normal vision right eye; I25.708 Atherosclerosis of coronary artery bypass graft(s), unspecified, with other forms of angina pectoris; I25.2 Old myocardial infarction; Z95.1 Presence of aortocoronary bypass graft; Z89.412 Acquired absence of left great toe; Z89.411 Acquired absence of right great toe; Z95.818 Presence of other cardiac implants and grafts; Z95.5 Presence of coronary angioplasty implant and graft; Z95.820 Peripheral vascular angioplasty status with implants and grafts; Z79.4 Long term (current) use of insulin; Z87.891 Personal history of nicotine dependence; T38.3X6A Underdosing of insulin and oral hypoglycemic [antidiabetic] drugs, initial encounter; Z91.128 Patient's intentional underdosing of medication regimen for other reason; E78.5 Hyperlipidemia, unspecified; Z95.810 Presence of automatic (implantable) cardiac defibrillator
CPT/HCPCS: J0456; J0692; J0696; J1650; J1815; J1939; J1940; Q9967